=== PATIENT | female | born 1950 | race American Indian/Alaskan Native ===

== ENCOUNTER 2018-05-20 11:45 | Inpatient (IN) | payer MEDICARE ==
--- NOTE | 2018-05-20 12:47 | Emergency Department Report ---
HPI - General Chief Complaint: Altered Mental Status Time Seen by Provider: 05/20/18 12:27 - HPI HPI: Room 23 The patient is a 67-year-old female presenting with a chief complaint of altered mental status. History is obtained by EMS report as patient is altered and family has not yet arrived. Per EMS the patient has had "altered mental status" since yesterday and has not eaten for the past 3 days. The patient seems confused but speaks clearly. The patient was not aware that she was currently in the emergency department. When asked how she is feeling or if anything is bothering her the patient does not answer. However patient is able to provide some of her past medical history acknowledging she has diabetes, asthma, hypertension, previous stroke and "kidney problems." Location: Mental state Duration: [See above] Quality: Altered Severity: Moderate Modifying factors: [see above] Context: [see above] Mode of transportation: [not driving] ED Past Medical Hx - Past Medical History Hx Hypertension: Yes Hx CVA: Yes Hx Diabetes: Yes Hx Renal Disease: Yes Hx Asthma: Yes Additional medical history: Sarcoidosis - Surgical History Past Surgical History?: No Additional Surgical History: R knee - Social History Smoking Status: Current Every Day Smoker (2/3 pack per day) Substance Use Type: None (denies illicit drug use) - Medications Home Medications: Home Medications Medication Instructions Recorded Confirmed Last Taken Type Acetaminophen/Codeine [Tylenol 1 tab PO Q6H PRN #12 tab 04/24/18 Unknown Rx /Codeine # 3 tab] Ibuprofen [Motrin] 600 mg PO Q8H PRN #20 tablet 04/24/18 Unknown Rx ED Review of Systems ROS: Stated complaint: AMS Other details as noted in HPI Comment: Unobtainable due to pts medical conditions Physical Exam - Physical Exam Vital Signs: Vital Signs 05/20/18 12:12 Temperature 99.3 F Pulse Rate 60 Respiratory 16 Rate Blood Pressure 105/41 Physical Exam: GENERAL: The patient is well-developed well-nourished female lying on stretcher not appearing to be in acute distress. [] HEENT: Normocephalic. Atraumatic. Extraocular motions are intact. Patient has moist mucous membranes. NECK: Supple. Trachea midline CHEST/LUNGS: Clear to auscultation. There is no respiratory distress noted. HEART/CARDIOVASCULAR: Regular. There is no tachycardia. There is no gallop rub or murmur. ABDOMEN: Abdomen is soft, nontender. Patient has normal bowel sounds. There is no abdominal distention. SKIN: There is no rash. There is no diaphoresis. NEURO: The patient is awake but appears confused and was not aware of her current location (emergency department). The patient is semi-cooperative. The patient has no focal neurologic deficits. The patient has normal speech. Self Contained Behavior Unit Teacher equal bilaterally. Moves all 4 extremities MUSCULOSKELETAL: There is no evidence of acute injury. ED Course Vital Signs 05/20/18 12:12 Temperature 99.3 F Pulse Rate 60 Respiratory 16 Rate Blood Pressure 105/41 ED Medical Decision Making - Lab Data Result diagrams: 05/20/18 13:10 05/20/18 13:10 - EKG Data -: EKG Interpreted by Me EKG shows normal: sinus rhythm Rate: normal - EKG Data When compared to previous EKG there are: previous EKG unavailable Interpretation: other (no ischemic changes seen) - Radiology Data Radiology results: pending (CT head) - Differential Diagnosis altered mental status, ICH, hypoglycemia, hyperkalemia Critical care attestation.: If time is entered above; I have spent that time in minutes in the direct care of this critically ill patient, excluding procedure time. ED Disposition Clinical Impression: Altered mental status Disposition: DC-09 OP ADMIT IP TO THIS HOSP Is pt being admited?: Yes Does the pt Need Aspirin: No Condition: Fair Referrals: PRIMARY CARE, [Primary Care Provider] - 3-5 Days Time of Disposition: 19:31 (hospitalist notified (Dr Robison))
[2018-05-20 13:20] LABS: Basophils % (Auto) 0.4 % (0.0-1.8); Hematocrit 35.6 % (30.3-42.9); Hemoglobin 11.9 gm/dl (10.1-14.3); Lymphocytes # (Auto) 0.6 K/mm3 (1.2-5.4); Mean Corpuscular HGB Conc 33 % (30-34); Mean Corpuscular Volume 85 fl (79-97); Monocytes # (Auto) 0.6 K/mm3 (0.0-0.8); Monocytes % (Auto) 7.6 % (0.0-7.3); Platelet Count 148 K/mm3 (140-440)
[2018-05-20 13:33] LABS: INR 1.17 (0.87-1.13); Partial Thromboplastin Time 27.5 Sec. (24.2-36.6)
[2018-05-20 13:38] LABS: Creatine Kinase MB 2.9 ng/mL (0.0-4.0)
[2018-05-20 13:39] LABS: Alanine Aminotransferase 18 units/L (7-56); Albumin 3.6 g/dL (3.9-5); BUN/Creatinine Ratio 12; Blood Urea Nitrogen 16 mg/dL (7-17); Calcium 9.1 mg/dL (8.4-10.2); Hemolysis Index 2
[2018-05-20] MEDS ORDERED: ATIVAN IV ONE ×2 (14:18→17:00)
[2018-05-20] MEDS ORDERED: ZOFRAN ONE (15:02)
[2018-05-20] MEDS ORDERED: ZOFRAN IV ONE (15:02)
[2018-05-20] MEDS ORDERED: XYLOCAINE 1% 20 mL ONE (17:35)
[2018-05-20] MEDS ORDERED: HALDOL IM ONE (18:58)
[2018-05-20] MEDS ORDERED: VERSED IV ONE (19:00)
[2018-05-20] MEDS ORDERED: VERSED IV NR (19:00)
--- NOTE | 2018-05-20 20:41 | Cat Scan Report ---
FINAL REPORT EXAM: CT HEAD/BRAIN WO CON HISTORY: altered mental status COMPARISON: None available. TECHNIQUE: Axial images obtained skull base through vertex. FINDINGS: No acute intracranial hemorrhage, midline shift or pathologic extra axial fluid collection. Ventricle s and cisterns are normal in size and configuration for the patient's age. [place]ancino-white differentiation preserved. Calvarium grossly intact. Ocular globes are grossly unremarkable. IMPRESSION: No grossly acute intracranial abnormality.
--- NOTE | 2018-05-20 22:59 | XRay Report ---
FINAL REPORT EXAM: XR CHEST 1V AP HISTORY: ams COMPARISON: None available. FINDINGS: Frontal view(s) of the chest obtained. Mild cardiac enlargement. Shallow inspiration with crowding of bronchovascular markings. No large consolidation or effusion. No pneumothorax. IMPRESSION: Mild cardiac enlargement. Shallow inspiration. No gross focal consolidation.
--- NOTE | 2018-05-20 23:16 | History and Physical Report ---
History of Present Illness Date of examination: 05/20/18 History of present illness: This 67-year-old woman with unknown medical problem, presumably hypertension, diabetes, CVA per the emergency room physician was sent to the emergency room for evaluation of altered mental status. The patient is status post Ativan, julia ble to give a history, review of systems unobtainable. It seems She recently had a right knee surgery, fresh scar present on knee PAST MEDICAL HISTORY: Unknown PAST SURGICAL HISTORY: Unknown SOCIAL HISTORY: Unknown FAMILY HISTORY: Unknown Medications and Allergies Allergies Allergy/AdvReac Type Severity Reaction Status Date / Time ciprofloxacin [From Cipro] Allergy Unknown Verified 04/24/18 21:07 lisinopril Allergy Unknown Verified 04/24/18 21:07 Lodine Allergy Unknown Uncoded 04/24/18 21:07 Home Medications Medication Instructions Recorded Confirmed Last Taken Type Acetaminophen/Codeine [Tylenol 1 tab PO Q6H PRN #12 tab 04/24/18 05/20/18 Unknown Rx /Codeine # 3 tab] Ibuprofen [Motrin] 600 mg PO Q8H PRN #20 tablet 04/24/18 05/20/18 Unknown Rx Active Meds: Active Medications Midazolam HCl (Versed) 5 mg IV ONCE NR Stop: 05/20/18 23:59 Last Admin: 05/20/18 19:02 Dose: 5 mg Documented by: Exam - Physical Exam Narrative exam: General Apperance: The patient lying in bed, breathing comfortable HEENT: Normocephalic, atraumatic. Pupils equally round and reactive to light, EOMI, no sclericterus or JVD or thyromegaly or nodule. , no carotid bruit, mucous membranes moist, no exudate or erythema Heart: S1-S2, regular is rhythm Lungs: Clear to auscultation bilaterally, breathing comfortable Abdomen: Positive bowel sounds, soft, nontender, nondistended, no organomegaly Extremities: No edema cyanosis clubbing Skin: no rash, nodule, warm and dry Neuro: Difficult to assess, moves all extremities - Constitutional Vitals: Temp Pulse Resp BP Pulse Ox 99.3 F 62 20 116/61 96 05/20/18 17:48 05/20/18 20:42 05/20/18 20:42 05/20/18 20:42 05/20/18 19:15 Results - Labs CBC & Chem 7: 05/21/18 04:00 05/20/18 13:10 Labs: Abnormal lab results 05/20/18 05/20/18 05/20/18 Range/Units 13:10 13:10 13:10 RDW 16.0 H (13.2-15.2) % Lymph % (Auto) 8.0 L (13.4-35.0) % [place] % (Auto) 7.6 H (0.0-7.3) % Lymph # 0.6 L (1.2-5.4) K/mm3 Seg Neutrophils % 84.0 H (40.0-70.0) % PT 15.3 H (12.2-14.9) Sec. INR 1.17 H (0.87-1.13) Potassium 3.5 L (3.6-5.0) mmol/L Creatinine 1.3 H (0.7-1.2) mg/dL Glucose 111 H (65-100) mg/dL Alkaline Phosphatase 181 H (35-129) units/L Total Creatine Kinase 524 H (30-135) units/L Albumin 3.6 L (3.9-5) g/dL - Imaging and Cardiology CT Scan - head: report reviewed Assessment and Plan Assessment Acute encephalopathy secondary to UTI Urinary tract infection Possible hypertension Possible diabetes Possible CVA Thrombocytopenia Plan Admit to medicine Start IV fluids IV Rocephin, follow cultures DVT prophylaxis
[2018-05-20 23:22] LABS: Amorphous Crystals,Urine 3+; Bacteria,Urine 3+ /HPF (Negative); Bilirubin,Urine NEG (Negative); Blood,Urine NEG (Negative); Color,Urine Yellow (Yellow); Urobilinogen,Urine < 2.0 mg/dL (<2.0)
[2018-05-20] MEDS ORDERED: TYLENOL PO PRN (23:51)
[2018-05-20] MEDS ORDERED: SODIUM CHLORIDE FLUSH SYRINGE 10 ML IV PRN (23:51)
[2018-05-20] MEDS ORDERED: ZOFRAN IV PRN (23:51)
[2018-05-20 23:54] LABS: RBC,Urine < 1.0 /HPF (0.0-6.0)
[2018-05-21] MEDS ORDERED: ROCEPHIN/NS 1 GM/50 ML 1 GM/50 ML BAG IV SCH ×2 (04:20→10:00)
[2018-05-21] MEDS ORDERED: SODIUM CHLORIDE FLUSH SYRINGE 10 ML IV PRN (04:20)
[2018-05-21] MEDS ORDERED: TYLENOL PO PRN (04:20)
[2018-05-21] MEDS ORDERED: NACL 0.9% 1000 ML 1,000 ML IV SCH (05:00)
[2018-05-21] MEDS: ROCEPHIN/NS 1 GM/50 ML 1 GM/50 ML BAG IV SCH (05:30)
[2018-05-21 06:07] LABS: Basophils % (Auto) 0.5 % (0.0-1.8); Hematocrit 36.6 % (30.3-42.9); Lymphocytes # (Auto) 0.7 K/mm3 (1.2-5.4); Lymphocytes % (Auto) 11.7 % (13.4-35.0); Mean Corpuscular HGB Conc 33 % (30-34); Mean Corpuscular Volume 85 fl (79-97); Monocytes # (Auto) 0.5 K/mm3 (0.0-0.8); Monocytes % (Auto) 9.3 % (0.0-7.3); Platelet Count 152 K/mm3 (140-440); Red Blood Count 4.32 M/mm3 (3.65-5.03); Red Cell Distribution Width 16.2 % (13.2-15.2)
[2018-05-21 06:24] LABS: Calcium 9.2 mg/dL (8.4-10.2)
[2018-05-21] MEDS: SODIUM CHLORIDE FLUSH SYRINGE 10 ML IV SCH ×4 (09:44→21:28)
[2018-05-21] MEDS ORDERED: LOVENOX SUB-Q SCH ×2 (10:00)
[2018-05-21] MEDS ORDERED: K-DUR PO ONE (10:20)
--- NOTE | 2018-05-21 10:30 | Progress Note ---
Assessment and Plan Assessment and plan: --Hypokalemia; replace per protocol and monitor levels --Sepsis secondary to UTI; continue empiric antibiotics follow cultures --Febrile illness; secondary to UTI Empiric antibiotics follow cultures --Encephalopathy; secondary to UTI Significant improvement, supportive care --Diarrhea probably vital, supportive care, stool analysis; --Acute kidney injury; vasomotor nephropathy IV fluids, avoid nephrotoxins --Hypernatremia: Half normal saline IV fluids Closely monitor electrolytes --Ongoing tobacco use; smoking cessation, nicotine patch as needed --Morbid obesity; advised weight reduction, may benefit by outpatient bariatric surgical evaluation. For weight reduction program, When medically stable --DVT prophylaxis; Lovenox Closely monitor the patient and adjust management as needed Possible discharge in 1-2 days if stable History Interval history: Patient seen and examined medical records reviewed Admitted with altered level of consciousness and UTI Patient feels slightly better Has some loose stool Alert awake oriented Vital signs noted Hospitalist Physical - Constitutional Vitals: Temp Pulse Resp BP Pulse Ox 100.4 F H 77 18 120/61 97 05/21/18 04:03 05/21/18 04:03 05/21/18 04:03 05/21/18 04:03 05/21/18 10:00 General appearance: Present: no acute distress, well-nourished, obese (morbidly obese) - EENT Eyes: Present: PERRL, EOM intact - Neck Neck: Present: supple, normal ROM - Respiratory Respiratory effort: normal Respiratory: bilateral: diminished, negative: rales, rhonchi, wheezing - Cardiovascular Rhythm: regular Heart Sounds: Present: S1 & S2 - Extremities Extremities: no ischemia, No edema - Abdominal General gastrointestinal: soft, non-tender, non-distended, normal bowel sounds - Integumentary Integumentary: Present: clear, warm - Psychiatric Psychiatric: appropriate mood/affect, cooperative - Neurologic Neurologic: CNII-XII intact, moves all extremities Results - Labs CBC & Chem 7: 05/21/18 04:00 05/21/18 05:30 Labs: Laboratory Last Values WBC 5.7 K/mm3 (4.5-11.0) 05/21/18 04:00 RBC 4.32 M/mm3 (3.65-5.03) 05/21/18 04:00 Hgb 12.0 gm/dl (10.1-14.3) 05/21/18 04:00 Hct 36.6 % (30.3-42.9) 05/21/18 04:00 MCV 85 fl (79-97) 05/21/18 04:00 MCH 28 pg (28-32) 05/21/18 04:00 MCHC 33 % (30-34) 05/21/18 04:00 RDW 16.2 % (13.2-15.2) H 05/21/18 04:00 Plt Count 152 K/mm3 (140-440) 05/21/18 04:00 Lymph % (Auto) 11.7 % (13.4-35.0) L 05/21/18 04:00 [place] % (Auto) 9.3 % (0.0-7.3) H 05/21/18 04:00 Eos % (Auto) 0.0 % (0.0-4.3) 05/21/18 04:00 Baso % (Auto) 0.5 % (0.0-1.8) 05/21/18 04:00 Lymph # 0.7 K/mm3 (1.2-5.4) L 05/21/18 04:00 [place] # 0.5 K/mm3 (0.0-0.8) 05/21/18 04:00 Eos # 0.0 K/mm3 (0.0-0.4) 05/21/18 04:00 Baso # 0.0 K/mm3 (0.0-0.1) 05/21/18 04:00 Seg Neutrophils % 78.5 % (40.0-70.0) H 05/21/18 04:00 Seg Neutrophils # 4.5 K/mm3 (1.8-7.7) 05/21/18 04:00 PT 15.3 Sec. (12.2-14.9) H 05/20/18 13:10 INR 1.17 (0.87-1.13) H 05/20/18 13:10 APTT 27.5 Sec. (24.2-36.6) 05/20/18 13:10 Sodium 147 mmol/L (137-145) H 05/21/18 05:30 Potassium 3.1 mmol/L (3.6-5.0) L 05/21/18 05:30 Chloride 104.7 mmol/L (98-107) 05/21/18 05:30 Carbon Dioxide 27 mmol/L (22-30) 05/21/18 05:30 Anion Gap 18 mmol/L 05/21/18 05:30 BUN 20 mg/dL (7-17) H 05/21/18 05:30 Creatinine 1.3 mg/dL (0.7-1.2) H 05/21/18 05:30 Estimated GFR 50 ml/min 05/21/18 05:30 BUN/Creatinine Ratio 15 % 05/21/18 05:30 Glucose 106 mg/dL (65-100) H 05/21/18 05:30 POC Glucose 99 (70-105) 05/21/18 07:40 Calcium 9.2 mg/dL (8.4-10.2) 05/21/18 05:30 Total Bilirubin 0.40 mg/dL (0.1-1.2) 05/20/18 13:10 AST 33 units/L (5-40) 05/20/18 13:10 ALT 18 units/L (7-56) 05/20/18 13:10 Alkaline Phosphatase 181 units/L (35-129) H 05/20/18 13:10 Ammonia 25.0 umol/L (25-60) 05/20/18 13:10 Total Creatine Kinase 524 units/L (30-135) H 05/20/18 13:10 CK-MB (CK-2) 2.9 ng/mL (0.0-4.0) 05/20/18 13:10 CK-MB (CK-2) Rel Index 0.5 (0-4) 05/20/18 13:10 Troponin T < 0.010 ng/mL (0.00-0.029) 05/20/18 13:10 NT-Pro-B Natriuret Pep 669.0 pg/mL (0-900) 05/20/18 13:10 Total Protein 7.7 g/dL (6.3-8.2) 05/20/18 13:10 Albumin 3.6 g/dL (3.9-5) L 05/20/18 13:10 Albumin/Globulin Ratio 0.9 % 05/20/18 13:10 Urine Color Yellow (Yellow) 05/20/18 22:50 Urine Turbidity Turbid (Clear) 05/20/18 22:50 Urine pH 5.0 (5.0-7.0) 05/20/18 22:50 Ur Specific [place] 1.030 (1.003-1.030) 05/20/18 22:50 Urine Protein 30 mg/dl mg/dL (Negative) 05/20/18 22:50 Urine Glucose (UA) Neg mg/dL (Negative) 05/20/18 22:50 Urine Ketones Neg mg/dL (Negative) 05/20/18 22:50 Urine Blood Neg (Negative) 05/20/18 22:50 Urine Nitrite Neg (Negative) 05/20/18 22:50 Urine Bilirubin Neg (Negative) 05/20/18 22:50 Urine Urobilinogen < 2.0 mg/dL (<2.0) 05/20/18 22:50 Ur Leukocyte Esterase Neg (Negative) 05/20/18 22:50 Urine WBC (Auto) 142.0 /HPF (0.0-6.0) H 05/20/18 22:50 Urine RBC (Auto) < 1.0 /HPF (0.0-6.0) 05/20/18 22:50 U Epithel Cells (Auto) 3.0 /HPF (0-13.0) 05/20/18 22:50 Urine Bacteria (Auto) 3+ /HPF (Negative) 05/20/18 22:50 Amorphous Crystals 3+ 05/20/18 22:50
[2018-05-21] MEDS: NACL 0.45% 1000 ML 1,000 ML IV SCH ×2 (11:29→21:30)
[2018-05-21] MEDS: ZOFRAN IV PRN (12:39)
[2018-05-21] MEDS: HABITROL TD SCH (13:39)
[2018-05-21] MEDS: PEPCID PO SCH (21:26)
[2018-05-21] MEDS ORDERED: ALUM-MAG HYDROX-SIMETH 200-200-20MG/5ML PO PRN (23:49)
[2018-05-22] MEDS: PERCOCET 5/325 PO PRN ×3 (01:13→21:57)
[2018-05-22 06:59] LABS: BUN/Creatinine Ratio 16; Blood Urea Nitrogen 18 mg/dL (7-17); Calcium 8.4 mg/dL (8.4-10.2); Hemolysis Index 0
[2018-05-22] MEDS: NACL 0.45% 1000 ML 1,000 ML IV SCH (06:59)
[2018-05-22] MEDS ORDERED: K-DUR PO ONE (08:00)
[2018-05-22] MEDS: KCL 10MEQ/100ML 10 MEQ/100 ML BAG IV SCH ×2 (08:58→15:06)
[2018-05-22] MEDS: PEPCID PO SCH ×2 (09:02→21:58)
[2018-05-22] MEDS: SODIUM CHLORIDE FLUSH SYRINGE 10 ML IV SCH ×4 (09:02→21:59)
--- NOTE | 2018-05-22 09:10 | Progress Note ---
Assessment and Plan Assessment and plan: --Hypokalemia; replace per protocol and monitor levels --Sepsis secondary to UTI; continue empiric antibiotics follow cultures --Febrile illness; secondary to UTI Empiric antibiotics follow cultures --Encephalopathy; secondary to UTI Significant improvement, supportive care --Diarrhea probably vital, supportive care, stool analysis; --Acute kidney injury; vasomotor nephropathy IV fluids, avoid nephrotoxins --Hypernatremia: Half normal saline IV fluids Closely monitor electrolytes --Ongoing tobacco use; smoking cessation, nicotine patch as needed --Morbid obesity; BMI 55.7, advised weight reduction, may benefit by outpatient bariatric surgical evaluation. For weight reduction program, When medically stable --DVT prophylaxis; Lovenox Physical therapy, evaluate and treat Closely monitor the patient and adjust management as needed Possible discharge in 1-2 days if stable History Interval history: Patient seen and examined medical records reviewed She complains of back pain, patient is comfortable Alert awake oriented, Vital signs reviewed No new events reported by the nursing staff Hospitalist Physical - Constitutional Vitals: Temp Pulse Resp BP Pulse Ox 98.6 F 66 24 137/67 98 05/22/18 05:01 05/22/18 05:01 05/22/18 05:01 05/22/18 05:01 05/22/18 05:01 General appearance: Present: no acute distress, well-nourished, obese (morbidly obese) - EENT Eyes: Present: PERRL, EOM intact - Neck Neck: Present: supple, normal ROM - Respiratory Respiratory effort: normal Respiratory: bilateral: diminished, negative: rales, rhonchi, wheezing - Cardiovascular Rhythm: regular Heart Sounds: Present: S1 & S2 - Extremities Extremities: no ischemia, No edema Extremity abnormal: other (status post knee surgery) - Abdominal General gastrointestinal: soft, non-tender, non-distended, normal bowel sounds - Integumentary Integumentary: Present: clear, warm - Psychiatric Psychiatric: appropriate mood/affect, cooperative - Neurologic Neurologic: CNII-XII intact, moves all extremities Results - Labs CBC & Chem 7: 05/21/18 04:00 05/22/18 05:50 Labs: Laboratory Last Values WBC 5.7 K/mm3 (4.5-11.0) 05/21/18 04:00 RBC 4.32 M/mm3 (3.65-5.03) 05/21/18 04:00 Hgb 12.0 gm/dl (10.1-14.3) 05/21/18 04:00 Hct 36.6 % (30.3-42.9) 05/21/18 04:00 MCV 85 fl (79-97) 05/21/18 04:00 MCH 28 pg (28-32) 05/21/18 04:00 MCHC 33 % (30-34) 05/21/18 04:00 RDW 16.2 % (13.2-15.2) H 05/21/18 04:00 Plt Count 152 K/mm3 (140-440) 05/21/18 04:00 Lymph % (Auto) 11.7 % (13.4-35.0) L 05/21/18 04:00 [place] % (Auto) 9.3 % (0.0-7.3) H 05/21/18 04:00 Eos % (Auto) 0.0 % (0.0-4.3) 05/21/18 04:00 Baso % (Auto) 0.5 % (0.0-1.8) 05/21/18 04:00 Lymph # 0.7 K/mm3 (1.2-5.4) L 05/21/18 04:00 [place] # 0.5 K/mm3 (0.0-0.8) 05/21/18 04:00 Eos # 0.0 K/mm3 (0.0-0.4) 05/21/18 04:00 Baso # 0.0 K/mm3 (0.0-0.1) 05/21/18 04:00 Seg Neutrophils % 78.5 % (40.0-70.0) H 05/21/18 04:00 Seg Neutrophils # 4.5 K/mm3 (1.8-7.7) 05/21/18 04:00 PT 15.3 Sec. (12.2-14.9) H 05/20/18 13:10 INR 1.17 (0.87-1.13) H 05/20/18 13:10 APTT 27.5 Sec. (24.2-36.6) 05/20/18 13:10 Sodium 139 mmol/L (137-145) D 05/22/18 05:50 Potassium 2.9 mmol/L (3.6-5.0) L* 05/22/18 05:50 Chloride 102.0 mmol/L (98-107) 05/22/18 05:50 Carbon Dioxide 23 mmol/L (22-30) 05/22/18 05:50 Anion Gap 17 mmol/L 05/22/18 05:50 BUN 18 mg/dL (7-17) H 05/22/18 05:50 Creatinine 1.1 mg/dL (0.7-1.2) 05/22/18 05:50 Estimated GFR > 60 ml/min 05/22/18 05:50 BUN/Creatinine Ratio 16 % 05/22/18 05:50 Glucose 99 mg/dL (65-100) 05/22/18 05:50 POC Glucose 88 (70-105) 05/22/18 07:13 Calcium 8.4 mg/dL (8.4-10.2) 05/22/18 05:50 Magnesium 2.30 mg/dL (1.7-2.3) 05/22/18 05:50 Total Bilirubin 0.40 mg/dL (0.1-1.2) 05/20/18 13:10 AST 33 units/L (5-40) 05/20/18 13:10 ALT 18 units/L (7-56) 05/20/18 13:10 Alkaline Phosphatase 181 units/L (35-129) H 05/20/18 13:10 Ammonia 25.0 umol/L (25-60) 05/20/18 13:10 Total Creatine Kinase 524 units/L (30-135) H 05/20/18 13:10 CK-MB (CK-2) 2.9 ng/mL (0.0-4.0) 05/20/18 13:10 CK-MB (CK-2) Rel Index 0.5 (0-4) 05/20/18 13:10 Troponin T < 0.010 ng/mL (0.00-0.029) 05/20/18 13:10 NT-Pro-B Natriuret Pep 669.0 pg/mL (0-900) 05/20/18 13:10 Total Protein 7.7 g/dL (6.3-8.2) 05/20/18 13:10 Albumin 3.6 g/dL (3.9-5) L 05/20/18 13:10 Albumin/Globulin Ratio 0.9 % 05/20/18 13:10 Urine Color Yellow (Yellow) 05/20/18 22:50 Urine Turbidity Turbid (Clear) 05/20/18 22:50 Urine pH 5.0 (5.0-7.0) 05/20/18 22:50 Ur Specific [place] 1.030 (1.003-1.030) 05/20/18 22:50 Urine Protein 30 mg/dl mg/dL (Negative) 05/20/18 22:50 Urine Glucose (UA) Neg mg/dL (Negative) 05/20/18 22:50 Urine Ketones Neg mg/dL (Negative) 05/20/18 22:50 Urine Blood Neg (Negative) 05/20/18 22:50 Urine Nitrite Neg (Negative) 05/20/18 22:50 Urine Bilirubin Neg (Negative) 05/20/18 22:50 Urine Urobilinogen < 2.0 mg/dL (<2.0) 05/20/18 22:50 Ur Leukocyte Esterase Neg (Negative) 05/20/18 22:50 Urine WBC (Auto) 142.0 /HPF (0.0-6.0) H 05/20/18 22:50 Urine RBC (Auto) < 1.0 /HPF (0.0-6.0) 05/20/18 22:50 U Epithel Cells (Auto) 3.0 /HPF (0-13.0) 05/20/18 22:50 Urine Bacteria (Auto) 3+ /HPF (Negative) 05/20/18 22:50 Amorphous Crystals 3+ 05/20/18 22:50
[2018-05-22] MEDS: HABITROL TD SCH (15:05)
[2018-05-22] MEDS: ROCEPHIN/NS 1 GM/50 ML 1 GM/50 ML BAG IV SCH (15:05)
[2018-05-22] MEDS: ZOFRAN IV PRN (17:54)
[2018-05-22] MEDS: LOMOTIL PO PRN (17:54)
[2018-05-23 05:51] LABS: BUN/Creatinine Ratio 17; Blood Urea Nitrogen 15 mg/dL (7-17); Calcium 8.3 mg/dL (8.4-10.2); Hemolysis Index 17
[2018-05-23] MEDS: ZOFRAN IV PRN (08:00)
[2018-05-23] MEDS: PERCOCET 5/325 PO PRN ×3 (08:00→21:07)
[2018-05-23] MEDS: PEPCID PO SCH ×2 (09:09→21:07)
[2018-05-23] MEDS: HABITROL TD SCH (09:11)
--- NOTE | 2018-05-23 11:06 | Progress Note ---
Assessment and Plan Assessment and plan: --Hypokalemia; replace per protocol and monitor levels --Sepsis secondary to UTI; continue empiric antibiotics follow cultures --Febrile illness; secondary to UTI Empiric antibiotics follow cultures --Encephalopathy; secondary to UTI Significant improvement, supportive care --Diarrhea probably vital, supportive care, stool analysis; --Acute kidney injury; vasomotor nephropathy IV fluids, avoid nephrotoxins --Hypernatremia: Half normal saline IV fluids Closely monitor electrolytes --Ongoing tobacco use; smoking cessation, nicotine patch as needed --Morbid obesity; BMI 55.7, advised weight reduction, may benefit by outpatient bariatric surgical evaluation. For weight reduction program, When medically stable --DVT prophylaxis; Lovenox Physical therapy, evaluate and treat Closely monitor the patient and adjust management as needed Possible discharge in 1-2 days if stable History Interval history: Patient seen and examined medical records reviewed Patient feels slightly better no new complaints Vital signs noted Hospitalist Physical - Constitutional Vitals: Temp Pulse Resp BP Pulse Ox 98.5 F 68 28 H 124/66 99 05/22/18 22:37 05/22/18 22:37 05/22/18 22:37 05/22/18 22:37 05/23/18 09:02 General appearance: Present: no acute distress, well-nourished, obese (morbidly obese) - EENT Eyes: Present: PERRL, EOM intact - Neck Neck: Present: supple, normal ROM - Respiratory Respiratory effort: normal Respiratory: bilateral: diminished, negative: rales, rhonchi, wheezing - Cardiovascular Rhythm: regular Heart Sounds: Present: S1 & S2 - Extremities Extremities: no ischemia, No edema - Abdominal General gastrointestinal: soft, non-tender, non-distended, normal bowel sounds - Integumentary Integumentary: Present: clear, warm - Psychiatric Psychiatric: appropriate mood/affect, cooperative (2.) - Neurologic Neurologic: CNII-XII intact, moves all extremities Results - Labs CBC & Chem 7: 05/21/18 04:00 05/23/18 04:50 Labs: Laboratory Last Values WBC 5.7 K/mm3 (4.5-11.0) 05/21/18 04:00 RBC 4.32 M/mm3 (3.65-5.03) 05/21/18 04:00 Hgb 12.0 gm/dl (10.1-14.3) 05/21/18 04:00 Hct 36.6 % (30.3-42.9) 05/21/18 04:00 MCV 85 fl (79-97) 05/21/18 04:00 MCH 28 pg (28-32) 05/21/18 04:00 MCHC 33 % (30-34) 05/21/18 04:00 RDW 16.2 % (13.2-15.2) H 05/21/18 04:00 Plt Count 152 K/mm3 (140-440) 05/21/18 04:00 Lymph % (Auto) 11.7 % (13.4-35.0) L 05/21/18 04:00 [place] % (Auto) 9.3 % (0.0-7.3) H 05/21/18 04:00 Eos % (Auto) 0.0 % (0.0-4.3) 05/21/18 04:00 Baso % (Auto) 0.5 % (0.0-1.8) 05/21/18 04:00 Lymph # 0.7 K/mm3 (1.2-5.4) L 05/21/18 04:00 [place] # 0.5 K/mm3 (0.0-0.8) 05/21/18 04:00 Eos # 0.0 K/mm3 (0.0-0.4) 05/21/18 04:00 Baso # 0.0 K/mm3 (0.0-0.1) 05/21/18 04:00 Seg Neutrophils % 78.5 % (40.0-70.0) H 05/21/18 04:00 Seg Neutrophils # 4.5 K/mm3 (1.8-7.7) 05/21/18 04:00 PT 15.3 Sec. (12.2-14.9) H 05/20/18 13:10 INR 1.17 (0.87-1.13) H 05/20/18 13:10 APTT 27.5 Sec. (24.2-36.6) 05/20/18 13:10 Sodium 135 mmol/L (137-145) L 05/23/18 04:50 Potassium 3.1 mmol/L (3.6-5.0) L 05/23/18 04:50 Chloride 99.1 mmol/L (98-107) 05/23/18 04:50 Carbon Dioxide 22 mmol/L (22-30) 05/23/18 04:50 Anion Gap 17 mmol/L 05/23/18 04:50 BUN 15 mg/dL (7-17) 05/23/18 04:50 Creatinine 0.9 mg/dL (0.7-1.2) 05/23/18 04:50 Estimated GFR > 60 ml/min 05/23/18 04:50 BUN/Creatinine Ratio 17 % 05/23/18 04:50 Glucose 85 mg/dL (65-100) 05/23/18 04:50 POC Glucose 96 (70-105) 05/23/18 08:16 Calcium 8.3 mg/dL (8.4-10.2) L 05/23/18 04:50 Magnesium 2.30 mg/dL (1.7-2.3) 05/22/18 05:50 Total Bilirubin 0.40 mg/dL (0.1-1.2) 05/20/18 13:10 AST 33 units/L (5-40) 05/20/18 13:10 ALT 18 units/L (7-56) 05/20/18 13:10 Alkaline Phosphatase 181 units/L (35-129) H 05/20/18 13:10 Ammonia 25.0 umol/L (25-60) 05/20/18 13:10 Total Creatine Kinase 524 units/L (30-135) H 05/20/18 13:10 CK-MB (CK-2) 2.9 ng/mL (0.0-4.0) 05/20/18 13:10 CK-MB (CK-2) Rel Index 0.5 (0-4) 05/20/18 13:10 Troponin T < 0.010 ng/mL (0.00-0.029) 05/20/18 13:10 NT-Pro-B Natriuret Pep 669.0 pg/mL (0-900) 05/20/18 13:10 Total Protein 7.7 g/dL (6.3-8.2) 05/20/18 13:10 Albumin 3.6 g/dL (3.9-5) L 05/20/18 13:10 Albumin/Globulin Ratio 0.9 % 05/20/18 13:10 Urine Color Yellow (Yellow) 05/20/18 22:50 Urine Turbidity Turbid (Clear) 05/20/18 22:50 Urine pH 5.0 (5.0-7.0) 05/20/18 22:50 Ur Specific [place] 1.030 (1.003-1.030) 05/20/18 22:50 Urine Protein 30 mg/dl mg/dL (Negative) 05/20/18 22:50 Urine Glucose (UA) Neg mg/dL (Negative) 05/20/18 22:50 Urine Ketones Neg mg/dL (Negative) 05/20/18 22:50 Urine Blood Neg (Negative) 05/20/18 22:50 Urine Nitrite Neg (Negative) 05/20/18 22:50 Urine Bilirubin Neg (Negative) 05/20/18 22:50 Urine Urobilinogen < 2.0 mg/dL (<2.0) 05/20/18 22:50 Ur Leukocyte Esterase Neg (Negative) 05/20/18 22:50 Urine WBC (Auto) 142.0 /HPF (0.0-6.0) H 05/20/18 22:50 Urine RBC (Auto) < 1.0 /HPF (0.0-6.0) 05/20/18 22:50 U Epithel Cells (Auto) 3.0 /HPF (0-13.0) 05/20/18 22:50 Urine Bacteria (Auto) 3+ /HPF (Negative) 05/20/18 22:50 Amorphous Crystals 3+ 05/20/18 22:50 C. difficile Tox (PCR) Negative (Negative) 05/21/18 Unknown
[2018-05-23] MEDS ORDERED: K-DUR PO ONE (12:00)
[2018-05-23] MEDS: ROCEPHIN/NS 1 GM/50 ML 1 GM/50 ML BAG IV SCH (12:38)
[2018-05-23] MEDS: SODIUM CHLORIDE FLUSH SYRINGE 10 ML IV SCH ×4 (12:48→21:16)
[2018-05-24] MEDS: PERCOCET 5/325 PO PRN (03:02)
[2018-05-24 05:31] LABS: Hematocrit 34.3 % (30.3-42.9); Hemoglobin 11.4 gm/dl (10.1-14.3); Mean Corpuscular HGB Conc 33 % (30-34); Mean Corpuscular Volume 84 fl (79-97); Platelet Count 144 K/mm3 (140-440); Red Blood Count 4.08 M/mm3 (3.65-5.03); Red Cell Distribution Width 15.9 % (13.2-15.2)
[2018-05-24 05:54] LABS: BUN/Creatinine Ratio 14; Blood Urea Nitrogen 13 mg/dL (7-17); Calcium 8.7 mg/dL (8.4-10.2); Hemolysis Index 5
[2018-05-24 06:20] LABS: Anisocytosis 1+; Band Neutrophils # (Manual) 0.3 K/mm3; Basophils % (Manual) 0 % (0.0-1.8); Giant Platelets Few; Myelocytes # (Manual) 0.1 K/mm3; Ovalocytes 1+; Promyelocytes # (Manual) 0.1 K/mm3; Tear Drop Cells Rare; Total Cells Counted 100
[2018-05-24] MEDS ORDERED: K-DUR PO ONE (09:00)
[2018-05-24] MEDS: ROCEPHIN/NS 1 GM/50 ML 1 GM/50 ML BAG IV SCH (10:49)
[2018-05-24] MEDS: HABITROL TD SCH (10:50)
[2018-05-24] MEDS: PEPCID PO SCH (10:50)
[2018-05-24] MEDS: SODIUM CHLORIDE FLUSH SYRINGE 10 ML IV SCH ×2 (10:51)
--- NOTE | 2018-05-24 11:20 | Discharge Summary ---
Providers - Providers Date of Admission: 05/20/18 23:15 Date of discharge: 05/24/18 Attending physician: JULIAN HERNANDEZ 05/22/18 12:35 Physical Therapy Evaluation and Treat [CONS] Routine Comment: recent R TKR Reason For Exam: difficulty in ambulation Primary care physician: [facility] [employer] Hospitalization Reason for admission: altered level of consciousness/urinary tract infection Condition: Fair Pertinent studies: CT head without contrast; no acute abnormality Chest x-ray; mild cardiomegaly, no acute abnormality Hospital course: Visit pleasant morbidly obese 67-year-old female patient with significant past medical history of hypertension and diabetes mellitus who was admitted through emergency room with altered level of consciousness patient was initially evaluated symptomatically managed noted to have urinary tract infection. Patient also has history of recent right knee surgery on physical therapy and occupational therapy. The patient's altered level of consciousness gradually improved back to baseline Empiric antibiotics started, and a urinalysis which is negative to date and today she is comfortable in bed no new complaints Vital signs reviewed, Physical examination no new changes Patient is hemodynamically and clinically stable for discharge with home health Discharge diagnosis; --Hypokalemia; corrected --Sepsis secondary to UTI; DC on oral antibiotics --Febrile illness; secondary to UTI --Encephalopathy; secondary to UTI; resolved --Diarrhea probably viral in improved --Acute kidney injury; vasomotor nephropathy; resolved --Hypernatremia: Half normal saline IV fluids; resolved --Ongoing tobacco use; smoking cessation, nicotine patch as needed --Morbid obesity; BMI 55.7, advised weight reduction, Disposition: DC/[place]-06 HOME UNDER HOME [facility] Time spent for discharge: 32 min Core Measure Documentation - Palliative Care Palliative Care/ Comfort Measures: Not Applicable - Core Measures Any of the following diagnoses?: none Exam - Constitutional Vitals: Temp Pulse Resp BP Pulse Ox 98.3 F 56 L 18 129/57 96 05/24/18 05:57 05/24/18 05:57 05/24/18 05:57 05/24/18 05:57 05/24/18 05:57 General appearance: Present: no acute distress, well-nourished, obese (morbid) - EENT Eyes: Present: PERRL, EOM intact - Neck Neck: Present: supple, normal ROM - Respiratory Respiratory effort: normal Respiratory: bilateral: diminished, negative: rales, rhonchi, wheezing - Cardiovascular Rhythm: regular Heart Sounds: Present: S1 & S2 - Extremities Extremities: no ischemia, No edema - Abdominal General gastrointestinal: Present: soft, non-tender, non-distended, normal bowel sounds - Integumentary Integumentary: Present: clear, warm - Musculoskeletal Musculoskeletal: strength equal bilaterally, generalized weakness - Psychiatric Psychiatric: appropriate mood/affect, cooperative - Neurologic Neurologic: CNII-XII intact, moves all extremities Plan Activity: advance as tolerated, fall precautions Diet: other (cardiac diet) Special Instructions: physical therapy Additional Instructions: Physical therapy per schedule. f/u private orthopedic surgeon as scheduled Follow up with: PRIMARY CARE, [Primary Care Provider] - 3-5 Days Prescriptions: Famotidine [Pepcid] 20 mg PO BID #60 tablet Nicotine [Habitrol] 7 mg TD QDAY #30 patch Sulfamethoxazole/Trimethoprim [Bactrim DS TAB] 1 each PO BID #14 tablet
[2018-05-24 12:22] VITALS: BP 116/54
[2018-05-24] MEDS: LOMOTIL PO PRN (12:33)
== END 2018-05-24 15:10 | disposition home health service (06) | DRG 871 ==
LOC: ED 11:45 → 3A 23:15
PROVIDERS: ADMIT Internal Medicine; ATTEND Internal Medicine
DX: A41.9 Sepsis, unspecified organism (principal); N17.0 Acute kidney failure with tubular necrosis; G93.40 Encephalopathy, unspecified; N39.0 Urinary tract infection, site not specified; E87.0 Hyperosmolality and hypernatremia; Z68.43 Body mass index [BMI] 50.0-59.9, adult; E66.01 Morbid (severe) obesity due to excess calories; E11.9 Type 2 diabetes mellitus without complications; E87.6 Hypokalemia; J45.909 Unspecified asthma, uncomplicated; I10 Essential (primary) hypertension; D69.6 Thrombocytopenia, unspecified; F17.210 Nicotine dependence, cigarettes, uncomplicated; Z88.1 Allergy status to other antibiotic agents; Z71.6 Tobacco abuse counseling; Z71.3 Dietary counseling and surveillance; Z88.8 Allergy status to other drugs, medicaments and biological substances; Z86.73 Personal history of transient ischemic attack (TIA), and cerebral infarction without residual deficits
CPT/HCPCS: 36415; 70450; 71045; 80048; 80053; 81001; 82140; 82550; 82553; 82962; 83735; 83880; 84484; 85007; 85025; 85610; 85730; 87040; 87045; 87086; 87493; 93005; 93010; 94760; 99406; G0378; J0696; J1630; J2060; J2250; J2405; J3480; J7030

== ENCOUNTER 2018-06-01 12:05 | Emergency (ER) | payer MEDICARE ==
--- NOTE | 2018-06-01 13:47 | Emergency Department Report ---
ED Lower Extremity HPI - General Chief Complaint: Extremity Injury, Lower Stated Complaint: XRAY ORDERED Time Seen by Provider: 06/01/18 13:35 Source: patient, RN notes reviewed Mode of arrival: Ambulatory Limitations: No Limitations - History of Present Illness Initial Comments: Patient is a 67-year-old female that presents emergency room for rule out of left lower extremity DVT. Patient was sent here by her orthopedist. Patient had a right total knee replacement on 04/18/2018. Patient complained to her orthopedic was right lower extremity swelling and pain. Patient states the pain is a 6 out of 10. Patient states the pain is better with rest and worse with palpation and movement. Patient states she is having complications from her knee replacement. Patient states around the surgery she was on Lovenox for a blood thinner. Patient denies chest pain. Patient denies shortness of breath. She denies abdominal pain. -: Sudden Injury: Leg: Right Place: home Severity: moderate, severe Severity scale (0 -10): 6 Improves With: rest Worsens With: weight bearing, movement, palpation Context: other (no injury. Patient denies trauma.) Associated Symptoms: swelling, able to partially bear weight, ambulatory. denies: snap/pop sensation, numbness, tingling - Related Data Home Medications Medication Instructions Recorded Confirmed Last Taken Dexlansoprazole (Nf) [Dexilant 60 mg PO DAILY 05/22/18 06/01/[address] (Nf)] Citalopram [celeXA] 20 mg PO QDAY 06/01/18 06/01/18 Unknown Clopidogrel [Plavix] 75 mg PO QDAY 06/01/18 06/01/18 Unknown Fluticasone/Vilanterol [Breo 1 each IH DAILY 06/01/18 06/01/18 Unknown Ellipta 100-25 Mcg INH] Folic Acid [Folvite] 1 mg PO QDAY 06/01/18 06/01/18 Unknown Furosemide [Lasix] 80 mg PO DAILY 06/01/18 06/01/18 Unknown Ipratropium (Nf) [Atrovent] 2 puff IH Q6HR 06/01/18 06/01/18 Unknown Levothyroxine [Synthroid] 75 mcg PO QAM 06/01/18 06/01/18 Unknown Linaclotide (Nf) [Linzess (Nf)] 290 mcg PO QDAY 06/01/18 06/01/18 Unknown Losartan [Cozaar] 100 mg PO QDAY 06/01/18 06/01/18 Unknown Metoprolol Tartrate 25 mg PO DAILY 06/01/18 06/01/18 Unknown Potassium Chloride [Klor-Con] 20 meq PO BID 06/01/18 06/01/18 Unknown Pregabalin [Lyrica] 150 mg PO BID 06/01/18 06/01/18 Unknown glipiZIDE [glipiZIDE ER] 5 mg PO QAM 06/01/18 06/01/18 Unknown hydrOXYzine HCl [Hydroxyzine HCl] 25 mg PO BID 06/01/18 06/01/18 Unknown Allergies Allergy/AdvReac Type Severity Reaction Status Date / Time ciprofloxacin [From Cipro] Allergy Unknown Verified 04/24/18 21:07 lisinopril Allergy Unknown Verified 04/24/18 21:07 Lodine Allergy Unknown Uncoded 04/24/18 21:07 ED Review of Systems ROS: Stated complaint: XRAY ORDERED Other details as noted in HPI Constitutional: denies: chills, fever Eyes: denies: eye pain, eye discharge, vision change ENT: denies: ear pain, throat pain Respiratory: denies: cough, shortness of breath, wheezing Cardiovascular: denies: chest pain, palpitations Endocrine: no symptoms reported Gastrointestinal: denies: abdominal pain, nausea, diarrhea Genitourinary: denies: urgency, dysuria, discharge Musculoskeletal: denies: back pain, joint swelling, arthralgia Skin: denies: rash, lesions Neurological: denies: headache, weakness, paresthesias Psychiatric: denies: anxiety, depression Hematological/Lymphatic: denies: easy bleeding, easy bruising ED Past Medical Hx - Past Medical History Previous Medical History?: Yes Hx Hypertension: Yes Hx CVA: Yes Hx Diabetes: Yes Hx Renal Disease: Yes Hx Asthma: Yes Additional medical history: Sarcoidosis - Surgical History Past Surgical History?: Yes Additional Surgical History: R knee - Family History Family history: no significant - Social History Smoking Status: Never Smoker Substance Use Type: None - Medications Home Medications: Home Medications Medication Instructions Recorded Confirmed Last Taken Type Dexlansoprazole (Nf) [Dexilant 60 mg PO DAILY 05/22/18 06/01/18 Unknown History (Nf)] Citalopram [celeXA] 20 mg PO QDAY 06/01/18 06/01/18 Unknown History Clopidogrel [Plavix] 75 mg PO QDAY 06/01/18 06/01/18 Unknown History Fluticasone/Vilanterol [Breo 1 each IH DAILY 06/01/18 06/01/18 Unknown History Ellipta 100-25 Mcg INH] Folic Acid [Folvite] 1 mg PO QDAY 06/01/18 06/01/18 Unknown History Furosemide [Lasix] 80 mg PO DAILY 06/01/18 06/01/18 Unknown History Ipratropium (Nf) [Atrovent] 2 puff IH Q6HR 06/01/18 06/01/18 Unknown History Levothyroxine [Synthroid] 75 mcg PO QAM 06/01/18 06/01/18 Unknown History Linaclotide (Nf) [Linzess (Nf)] 290 mcg PO QDAY 06/01/18 06/01/18 Unknown History Losartan [Cozaar] 100 mg PO QDAY 06/01/18 06/01/18 Unknown History Metoprolol Tartrate 25 mg PO DAILY 06/01/18 06/01/18 Unknown History Potassium Chloride [Klor-Con] 20 meq PO BID 06/01/18 06/01/18 Unknown History Pregabalin [Lyrica] 150 mg PO BID 06/01/18 06/01/18 Unknown History glipiZIDE [glipiZIDE ER] 5 mg PO QAM 06/01/18 06/01/18 Unknown History hydrOXYzine HCl [Hydroxyzine HCl] 25 mg PO BID 06/01/18 06/01/18 Unknown History ED Physical Exam - General Limitations: No Limitations General appearance: alert, in no apparent distress - Head Head exam: Present: atraumatic, normocephalic - Eye Eye exam: Present: normal appearance - ENT ENT exam: Present: mucous membranes moist - Neck Neck exam: Present: normal inspection - Respiratory Respiratory exam: Present: normal lung sounds bilaterally. Absent: respiratory distress - Cardiovascular Cardiovascular Exam: Present: regular rate, normal rhythm. Absent: systolic murmur, diastolic murmur, rubs, gallop - GI/Abdominal GI/Abdominal exam: Present: soft, normal bowel sounds - Extremities Exam Extremities exam: Present: tenderness (right lower extremity swelling. Right lower extremity tenderness to palpation. Positive calf tenderness on the right. Right knee replacement scar appears to be healing well), pedal edema, joint swelling, calf tenderness - Back Exam Back exam: Present: normal inspection - Neurological Exam Neurological exam: Present: alert, oriented X3 - Psychiatric Psychiatric exam: Present: normal affect, normal mood - Skin Skin exam: Present: warm, dry, intact, normal color. Absent: rash ED Course Vital Signs 06/01/18 06/01/18 12:27 14:30 Temperature 98.7 F 98.0 F Pulse Rate 80 Respiratory 18 19 Rate Blood Pressure 140/84 Blood Pressure 143/85 [Left] O2 Sat by Pulse 97 98 Oximetry ED Lower Extremity MDM - Radiology Data Radiology results: report reviewed FINAL REPORT EXAM: VL VENOUS DUPLEX LE RT HISTORY: leg pain and swelling COMPARISON: None. TECHNIQUE: Duplex Doppler ultrasound of the veins of the right lower extremity was performed. FINDINGS: The veins of the right lower extremity are patent, compressible, and demonstra te normal waveforms and augmentation. IMPRESSION: No evidence of deep venous thrombosis of the right lower extremity. - Medical Decision Making Patient is a 67-year-old female is sent here by her orthopedist for DVT evaluation. Patient's DVT ultrasound was negative. Patient discharged home. Patient stable at discharge. Patient given discharge instructions. - Differential Diagnosis leg pain. Leg swelling. DVT. Critical care attestation.: If time is entered above; I have spent that time in minutes in the direct care of this critically ill patient, excluding procedure time. ED Disposition Clinical Impression: Leg swelling Leg pain Qualifiers: Laterality: right Qualified Code(s): M79.604 - Pain in right leg Disposition: DC-01 TO HOME OR SELFCARE Is pt being admited?: No Does the pt Need Aspirin: No Condition: Stable Instructions: Leg Edema (ED), Leg Sprain (ED) Additional Instructions: Patient to follow up with orthopedist in 2-3 days. Patient to call her orthopedist in the morning. Patient to see her primary care in 2-3 days. Patient to return to ER if condition worsens. Patient to continue all her medications. Patient to rest. To elevate. Patient to take Tylenol when necessary for pain. Referrals: LANCE PALMER MD [Primary Care Provider] - 2-3 Days Time of Disposition: 16:28
--- NOTE | 2018-06-01 15:50 | Vascular Lab Report ---
FINAL REPORT EXAM: VL VENOUS DUPLEX LE RT HISTORY: leg pain and swelling COMPARISON: None. TECHNIQUE: Duplex Doppler ultrasound of the veins of the right lower extremity was performed. FINDINGS: The veins of the right lower extremity are patent, compressible, and demonstrate normal waveforms and augmentation. IMPRESSION: No evidence of deep venous thrombosis of the right lower extremity.
[2018-06-01 16:57] VITALS: BP 136/71
== END 2018-06-01 16:45 | disposition home or self-care (01) ==
LOC: ED 12:05
DX: M79.604 Pain in right leg (principal); R22.41 Localized swelling, mass and lump, right lower limb

== ENCOUNTER 2018-06-27 10:01 | Inpatient (IN) | payer MEDICARE ==
[2018-06-27] MEDS ORDERED: NACL 0.9% 1000 ML IV ONE (11:17)
--- NOTE | 2018-06-27 11:38 | XRay Report ---
AP CHEST: HISTORY: Fever There is poor inspiration. AP view of the chest demonstrates a normal mediastinal and cardiac contour with clear lungs and normal bony and soft tissue structures. IMPRESSION: Unremarkable AP chest. No significant change since 05/20/18.
--- NOTE | 2018-06-27 11:46 | Emergency Department Report ---
ED Altered Mental Status HPI - General Chief Complaint: Altered Mental Status Stated Complaint: ALTERED MENTAL STATUS Time Seen by Provider: 06/27/18 11:15 Source: EMS Mode of arrival: Ambulatory Limitations: Physical Limitation - History of Present Illness Initial Comments: Mrs. Long is a 67-year-old female with history of sarcoidosis, asthma, CVA, diabetes, hypertension, depression, CKD, severe obesity who presents with also mental status. Also has fever. Patient is currently nonverbal. History obtained from EMS and the electronic medical record. Found also by her daughter. Normal mental status last night. In May had similar presentation. Diagnosed with acute encephalopathy sepsis due to UTI. MD Complaint: altered mental status -: This morning Consistency of Symptoms: constant Context: history of similar presen, recent fever Associated Symptoms: other (unable to obtain) - Related Data Home Medications Medication Instructions Recorded Confirmed Last Taken Dexlansoprazole (Nf) [Dexilant 60 mg PO DAILY 05/22/18 06/01/18 Unknown (Nf)] Citalopram [celeXA] 20 mg PO QDAY 06/01/18 06/01/18 Unknown Clopidogrel [Plavix] 75 mg PO QDAY 06/01/18 06/01/18 Unknown Fluticasone/Vilanterol [Breo 1 each IH DAILY 06/01/18 06/01/18 Unknown Ellipta 100-25 Mcg INH] Folic Acid [Folvite] 1 mg PO QDAY 06/01/18 06/01/18 Unknown Furosemide [Lasix] 80 mg PO DAILY 06/01/18 06/01/18 Unknown Ipratropium (Nf) [Atrovent] 2 puff IH Q6HR 06/01/18 06/01/18 Unknown Levothyroxine [Synthroid] 75 mcg PO QAM 06/01/18 06/01/18 Unknown Linaclotide (Nf) [Linzess (Nf)] 290 mcg PO QDAY 06/01/18 06/01/18 Unknown Losartan [Cozaar] 100 mg PO QDAY 06/01/18 06/01/18 Unknown Metoprolol Tartrate 25 mg PO DAILY 06/01/18 06/01/18 Unknown Potassium Chloride [Klor-Con] 20 meq PO BID 06/01/18 06/01/18 Unknown Pregabalin [Lyrica] 150 mg PO BID 06/01/18 06/01/18 Unknown glipiZIDE [glipiZIDE ER] 5 mg PO QAM 06/01/18 06/01/18 Unknown hydrOXYzine HCl [Hydroxyzine HCl] 25 mg PO BID 06/01/18 06/01/18 Unknown Allergies Allergy/AdvReac Type Severity Reaction Status Date / Time ciprofloxacin [From Cipro] Allergy Unknown Verified 04/24/18 21:07 lisinopril Allergy Unknown Verified 04/24/18 21:07 Lodine Allergy Unknown Uncoded 04/24/18 21:07 ED Review of Systems ROS: Stated complaint: ALTERED MENTAL STATUS Other details as noted in HPI Comment: Unobtainable due to pts medical conditions (patient is altered.) ED Past Medical Hx - Past Medical History Previous Medical History?: Yes Hx Hypertension: Yes Hx CVA: Yes Hx Heart Attack/AMI: No Hx Congestive Heart Failure: No Hx Diabetes: Yes Hx Deep Vein Thrombosis: No Hx Pulmonary Embolism: No Hx GERD: No Hx Liver Disease: No Hx Renal Disease: Yes Hx of Cancer: No Hx Sickle Cell Disease: No Hx Arthritis: No Hx Headaches / Migraines: No Hx Seizures: No Hx Kidney Stones: No Hx Psychiatric Treatment: Yes (depression) Hx Asthma: Yes Hx COPD: No Hx Tuberculosis: No Hx Dementia: No Hx HIV: No Additional medical history: Sarcoidosis - Surgical History Past Surgical History?: Yes Hx Coronary Stent: No Hx Open Heart Surgery: No Hx Pacemaker: No Hx Internal Defibrillator: No Hx Cholecystectomy: No Hx Appendectomy: No Hx Breast Surgery: No Additional Surgical History: R knee - Social History Smoking Status: Never Smoker Substance Use Type: None - Medications Home Medications: Home Medications Medication Instructions Recorded Confirmed Last Taken Type Dexlansoprazole (Nf) [Dexilant 60 mg PO DAILY 05/22/18 06/01/18 Unknown History (Nf)] Citalopram [celeXA] 20 mg PO QDAY 06/01/18 06/01/18 Unknown History Clopidogrel [Plavix] 75 mg PO QDAY 06/01/18 06/01/18 Unknown History Fluticasone/Vilanterol [Breo 1 each IH DAILY 06/01/18 06/01/18 Unknown History Ellipta 100-25 Mcg INH] Folic Acid [Folvite] 1 mg PO QDAY 06/01/18 06/01/18 Unknown History Furosemide [Lasix] 80 mg PO DAILY 06/01/18 06/01/18 Unknown History Ipratropium (Nf) [Atrovent] 2 puff IH Q6HR 06/01/18 06/01/18 Unknown History Levothyroxine [Synthroid] 75 mcg PO QAM 06/01/18 06/01/18 Unknown History Linaclotide (Nf) [Linzess (Nf)] 290 mcg PO QDAY 06/01/18 06/01/18 Unknown History Losartan [Cozaar] 100 mg PO QDAY 06/01/18 06/01/18 Unknown History Metoprolol Tartrate 25 mg PO DAILY 06/01/18 06/01/18 Unknown History Potassium Chloride [Klor-Con] 20 meq PO BID 06/01/18 06/01/18 Unknown History Pregabalin [Lyrica] 150 mg PO BID 06/01/18 06/01/18 Unknown History glipiZIDE [glipiZIDE ER] 5 mg PO QAM 06/01/18 06/01/18 Unknown History hydrOXYzine HCl [Hydroxyzine HCl] 25 mg PO BID 06/01/18 06/01/18 Unknown History ED Physical Exam - General Limitations: Physical Limitation General appearance: alert, lethargic, other (arousable to minor stimulation, will make eye contact but will not speak) - Head Head exam: Present: atraumatic, normocephalic - Eye Eye exam: Present: normal appearance - ENT ENT exam: Present: mucous membranes dry - Neck Neck exam: Present: normal inspection - Respiratory Respiratory exam: Present: normal lung sounds bilaterally. Absent: respiratory distress, wheezes, rales, rhonchi - Cardiovascular Cardiovascular Exam: Present: regular rate, normal rhythm, normal heart sounds. Absent: systolic murmur, diastolic murmur, rubs, gallop - GI/Abdominal GI/Abdominal exam: Present: soft, normal bowel sounds. Absent: distended, tenderness, guarding, rebound - Expanded Lower Extremity Exam Right Knee exam: Present: full ROM (fresh healing surgical scar). Absent: tenderness, swelling, abrasion - Neurological Exam Neurological exam: Present: altered - Psychiatric Psychiatric exam: Present: flat affect - Skin Skin exam: Present: warm, dry, intact, normal color. Absent: rash ED Course Vital Signs 06/27/18 11:00 Temperature 101.1 F H Pulse Rate 104 H Respiratory 17 Rate Blood Pressure 116/70 Blood Pressure 116/70 [Right] O2 Sat by Pulse 100 Oximetry - Lumbar Puncture Consent Obtained: written consent Time Out Performed: Yes Indication for Procedure: fever work up, change in mental status Patient Position: left lateral decubitus Skin Prep: Povidone-Iodine 1% Local Anesthetic Used: Lidocaine 1% Amount of anesthesia used (mls): 5 Spinal Needle Gauge: 20G Spinal Needle Length: 3.5in Interspace Used: L3-L4 Complications: none, unable to tolerate Additional Comments: due to obese habitus, unable to palpate vertabrae or iliac crest, after hubbing needle was able to contact bone. Unable to reach dura. Procedure aborted. - Lab Data Result diagrams: 06/27/18 11:44 06/27/18 11:44 Lab Results 06/27/18 06/27/18 06/27/18 Range/Units 11:00 11:39 11:39 WBC (4.5-11.0) K/mm3 RBC (3.65-5.03) M/mm3 Hgb (10.1-14.3) gm/dl Hct (30.3-42.9) % MCV (79-97) fl MCH (28-32) pg MCHC (30-34) % RDW (13.2-15.2) % Plt Count (140-440) K/mm3 Add Manual Diff Total Counted Seg Neuts % (Manual) (40.0-70.0) % Band Neutrophils % % Lymphocytes % (Manual) (13.4-35.0) % Reactive Lymphs % (Man) % Monocytes % (Manual) (0.0-7.3) % Eosinophils % (Manual) (0.0-4.3) % Basophils % (Manual) (0.0-1.8) % Metamyelocytes % % Myelocytes % % Promyelocytes % % Blast Cells % % Nucleated RBC % Seg Neutrophils # Man (1.8-7.7) K/mm3 Band Neutrophils # K/mm3 Lymphocytes # (Manual) (1.2-5.4) K/mm3 Abs React Lymphs (Man) K/mm3 Monocytes # (Manual) (0.0-0.8) K/mm3 Eosinophils # (Manual) (0.0-0.4) K/mm3 Basophils # (Manual) (0.0-0.1) K/mm3 Metamyelocytes # K/mm3 Myelocytes # K/mm3 Promyelocytes # K/mm3 Blast Cells # K/mm3 WBC Morphology Hypersegmented Neuts Hyposegmented Neuts Hypogranular Neuts Smudge Cells Toxic Granulation Toxic Vacuolation Dohle Bodies Pelger-Huet Anomaly Herminia Rods Platelet Estimate Clumped Platelets Plt Clumps, EDTA Large Platelets Giant Platelets Platelet Satelliting Plt Morphology Comment RBC Morphology Dimorphic RBCs Polychromasia Hypochromasia Poikilocytosis Anisocytosis Microcytosis Macrocytosis Spherocytes Pappenheimer Bodies Sickle Cells Target Cells Tear Drop Cells Ovalocytes Helmet Cells [place] Bodies [place]gora Rings [place] Cells Bite Cells Crenated Cell Elliptocytes Acanthocytes (Spur) Rouleaux Hemoglobin C Crystals Schistocytes Malaria parasites David Bodies Hem Pathologist Commnt Sodium (137-145) mmol/L Potassium (3.6-5.0) mmol/L Chloride (98-107) mmol/L Carbon Dioxide (22-30) mmol/L Anion Gap mmol/L BUN (7-17) mg/dL Creatinine (0.7-1.2) mg/dL Estimated GFR ml/min BUN/Creatinine Ratio % Glucose (65-100) mg/dL POC Glucose 126 H (70-105) Calcium (8.4-10.2) mg/dL Total Bilirubin (0.1-1.2) mg/dL AST (5-40) units/L ALT (7-56) units/L Alkaline Phosphatase (35-129) units/L Total Protein (6.3-8.2) g/dL Albumin (3.9-5) g/dL Albumin/Globulin Ratio % TSH (0.270-4.200) mlU/mL Urine Color Yellow (Yellow) Urine Turbidity Clear (Clear) Urine pH 5.0 (5.0-7.0) Ur Specific [place] 1.021 (1.003-1.030) Urine Protein <15 mg/dl (Negative) mg/dL Urine Glucose (UA) Neg (Negative) mg/dL Urine Ketones Neg (Negative) mg/dL Urine Blood Neg (Negative) Urine Nitrite Neg (Negative) Urine Bilirubin Neg (Negative) Urine Urobilinogen 2.0 (<2.0) mg/dL Ur Leukocyte Esterase Neg (Negative) Urine WBC (Auto) < 1.0 (0.0-6.0) /HPF Urine RBC (Auto) 3.0 (0.0-6.0) /HPF U Epithel Cells (Auto) < 1.0 (0-13.0) /HPF Urine Mucus Few /HPF Urine Opiates Screen Presumptive negative Urine Methadone Screen Presumptive negative Ur Barbiturates Screen Presumptive negative Ur Phencyclidine Scrn Presumptive negative Ur Amphetamines Screen Presumptive negative U Benzodiazepines Scrn Presumptive negative Urine Cocaine Screen Presumptive negative U Marijuana (THC) Screen Presumptive negative Drugs of Abuse Note Disclamer Plasma/Serum Alcohol (0-0.07) % 06/27/18 06/27/18 06/27/18 Range/Units 11:44 11:44 11:44 WBC 15.1 H (4.5-11.0) K/mm3 RBC 4.53 (3.65-5.03) M/mm3 Hgb 12.3 (10.1-14.3) gm/dl Hct 37.8 (30.3-42.9) % MCV 84 (79-97) fl MCH 27 L (28-32) pg MCHC 33 (30-34) % RDW 17.1 H (13.2-15.2) % Plt Count 174 (140-440) K/mm3 Add Manual Diff Complete Total Counted 100 Seg Neuts % (Manual) 95.0 H (40.0-70.0) % Band Neutrophils % 0 % Lymphocytes % (Manual) 3.0 L (13.4-35.0) % Reactive Lymphs % (Man) 0 % Monocytes % (Manual) 1.0 (0.0-7.3) % Eosinophils % (Manual) 1.0 (0.0-4.3) % Basophils % (Manual) 0 (0.0-1.8) % Metamyelocytes % 0 % Myelocytes % 0 % Promyelocytes % 0 % Blast Cells % 0 % Nucleated RBC % Not Reportable Seg Neutrophils # Man 14.3 H (1.8-7.7) K/mm3 Band Neutrophils # 0.0 K/mm3 Lymphocytes # (Manual) 0.5 L (1.2-5.4) K/mm3 Abs React Lymphs (Man) 0.0 K/mm3 Monocytes # (Manual) 0.2 (0.0-0.8) K/mm3 Eosinophils # (Manual) 0.2 (0.0-0.4) K/mm3 Basophils # (Manual) 0.0 (0.0-0.1) K/mm3 Metamyelocytes # 0.0 K/mm3 Myelocytes # 0.0 K/mm3 Promyelocytes # 0.0 K/mm3 Blast Cells # 0.0 K/mm3 WBC Morphology Not Reportable Hypersegmented Neuts Not Reportable Hyposegmented Neuts Not Reportable Hypogranular Neuts Not Reportable Smudge Cells Not Reportable Toxic Granulation Not Reportable Toxic Vacuolation Not Reportable Dohle Bodies Not Reportable Pelger-Huet Anomaly Not Reportable Herminia Rods Not Reportable Platelet Estimate Consistent w auto Clumped Platelets Not Reportable Plt Clumps, EDTA Not Reportable Large Platelets Not Reportable Giant Platelets Not Reportable Platelet Satelliting Not Reportable Plt Morphology Comment Not Reportable RBC Morphology Not Reportable Dimorphic RBCs Not Reportable Polychromasia Rare Hypochromasia Not Reportable Poikilocytosis Not Reportable Anisocytosis 1+ Microcytosis Not Reportable Macrocytosis Not Reportable Spherocytes Not Reportable Pappenheimer Bodies Not Reportable Sickle Cells Not Reportable Target Cells Not Reportable Tear Drop Cells Not Reportable Ovalocytes Few Helmet Cells Not Reportable [place] Bodies Not Reportable [place] Rings Not Reportable David Cells Not Reportable Bite Cells Not Reportable Crenated Cell Not Reportable Elliptocytes Rare Acanthocytes (Spur) Not Reportable Rouleaux Not Reportable Hemoglobin C Crystals Not Reportable Schistocytes Not Reportable Malaria parasites Not Reportable David Bodies Not Reportable Hem Pathologist Commnt No Sodium (137-145) mmol/L Potassium (3.6-5.0) mmol/L Chloride (98-107) mmol/L Carbon Dioxide (22-30) mmol/L Anion Gap mmol/L BUN (7-17) mg/dL Creatinine (0.7-1.2) mg/dL Estimated GFR ml/min BUN/Creatinine Ratio % Glucose (65-100) mg/dL POC Glucose (70-105) Calcium (8.4-10.2) mg/dL Total Bilirubin (0.1-1.2) mg/dL AST (5-40) units/L ALT (7-56) units/L Alkaline Phosphatase (35-129) units/L Total Protein (6.3-8.2) g/dL Albumin (3.9-5) g/dL Albumin/Globulin Ratio % TSH 1.220 (0.270-4.200) mlU/mL Urine Color (Yellow) Urine Turbidity (Clear) Urine pH (5.0-7.0) Ur Specific [place] (1.003-1.030) Urine Protein (Negative) mg/dL Urine Glucose (UA) (Negative) mg/dL Urine Ketones (Negative) mg/dL Urine Blood (Negative) Urine Nitrite (Negative) Urine Bilirubin (Negative) Urine Urobilinogen (<2.0) mg/dL Ur Leukocyte Esterase (Negative) Urine WBC (Auto) (0.0-6.0) /HPF Urine RBC (Auto) (0.0-6.0) /HPF U Epithel Cells (Auto) (0-13.0) /HPF Urine Mucus /HPF Urine Opiates Screen Urine Methadone Screen Ur Barbiturates Screen Ur Phencyclidine Scrn Ur Amphetamines Screen U Benzodiazepines Scrn Urine Cocaine Screen U Marijuana (THC) Screen Drugs of Abuse Note Plasma/Serum Alcohol < 0.01 (0-0.07) % 06/27/18 Range/Units 11:44 WBC (4.5-11.0) K/mm3 RBC (3.65-5.03) M/mm3 Hgb (10.1-14.3) gm/dl Hct (30.3-42.9) % MCV (79-97) fl MCH (28-32) pg MCHC (30-34) % RDW (13.2-15.2) % Plt Count (140-440) K/mm3 Add Manual Diff Total Counted Seg Neuts % (Manual) (40.0-70.0) % Band Neutrophils % % Lymphocytes % (Manual) (13.4-35.0) % Reactive Lymphs % (Man) % Monocytes % (Manual) (0.0-7.3) % Eosinophils % (Manual) (0.0-4.3) % Basophils % (Manual) (0.0-1.8) % Metamyelocytes % % Myelocytes % % Promyelocytes % % Blast Cells % % Nucleated RBC % Seg Neutrophils # Man (1.8-7.7) K/mm3 Band Neutrophils # K/mm3 Lymphocytes # (Manual) (1.2-5.4) K/mm3 Abs React Lymphs (Man) K/mm3 Monocytes # (Manual) (0.0-0.8) K/mm3 Eosinophils # (Manual) (0.0-0.4) K/mm3 Basophils # (Manual) (0.0-0.1) K/mm3 Metamyelocytes # K/mm3 Myelocytes # K/mm3 Promyelocytes # K/mm3 Blast Cells # K/mm3 WBC Morphology Hypersegmented Neuts Hyposegmented Neuts Hypogranular Neuts Smudge Cells Toxic Granulation Toxic Vacuolation Dohle Bodies Pelger-Huet Anomaly Herminia Rods Platelet Estimate Clumped Platelets Plt Clumps, EDTA Large Platelets Giant Platelets Platelet Satelliting Plt Morphology Comment RBC Morphology Dimorphic RBCs Polychromasia Hypochromasia Poikilocytosis Anisocytosis Microcytosis Macrocytosis Spherocytes Pappenheimer Bodies Sickle Cells Target Cells Tear Drop Cells Ovalocytes Helmet Cells [place] Bodies [place] Rings [place] Cells Bite Cells Crenated Cell Elliptocytes Acanthocytes (Spur) Rouleaux Hemoglobin C Crystals Schistocytes Malaria parasites David Bodies Hem Pathologist Commnt Sodium 140 (137-145) mmol/L Potassium 4.5 (3.6-5.0) mmol/L Chloride 102.3 (98-107) mmol/L Carbon Dioxide 23 (22-30) mmol/L Anion Gap 19 mmol/L BUN 13 (7-17) mg/dL Creatinine 1.0 (0.7-1.2) mg/dL Estimated GFR > 60 ml/min BUN/Creatinine Ratio 13 % Glucose 115 H (65-100) mg/dL POC Glucose (70-105) Calcium 9.1 (8.4-10.2) mg/dL Total Bilirubin 0.50 (0.1-1.2) mg/dL AST 68 H (5-40) units/L ALT 32 (7-56) units/L Alkaline Phosphatase 268 H (35-129) units/L Total Protein 8.3 H (6.3-8.2) g/dL Albumin 3.5 L (3.9-5) g/dL Albumin/Globulin Ratio 0.7 % TSH (0.270-4.200) mlU/mL Urine Color (Yellow) Urine Turbidity (Clear) Urine pH (5.0-7.0) Ur Specific [place] (1.003-1.030) Urine Protein (Negative) mg/dL Urine Glucose (UA) (Negative) mg/dL Urine Ketones (Negative) mg/dL Urine Blood (Negative) Urine Nitrite (Negative) Urine Bilirubin (Negative) Urine Urobilinogen (<2.0) mg/dL Ur Leukocyte Esterase (Negative) Urine WBC (Auto) (0.0-6.0) /HPF Urine RBC (Auto) (0.0-6.0) /HPF U Epithel Cells (Auto) (0-13.0) /HPF Urine Mucus /HPF Urine Opiates Screen Urine Methadone Screen Ur Barbiturates Screen Ur Phencyclidine Scrn Ur Amphetamines Screen U Benzodiazepines Scrn Urine Cocaine Screen U Marijuana (THC) Screen Drugs of Abuse Note Plasma/Serum Alcohol (0-0.07) % 06/27/18 11:45 EKG obtained 1114 Sinus tachycardia rate 100 bpm left axis deviation no ST elevation or signs of ischemia - Medical Decision Making Mrs. Long presents with fever and altered mental status. No evidence of urinary tract infection or pneumonia. She received meningitis coverage antibiotics ceftriaxone and vancomycin in the ED. With recent knee surgery, possible source of infection. However, no joint effusion on exam. Daughter explained that Ms. Long had total knee replacement in April 2 months prior. I discussed imaging guided LP with radiologist who requested first attempt in ED. Patient is on Plavix. Admitted to hospitalist service in guarded condition. I obtained consent for lumbar puncture. Due to habitus, lumbar puncture was unsuccessful in lateral decubitus position. Critical Care Time: Yes Critical care time in (mins) excluding proc time.: 40 Critical care attestation.: If time is entered above; I have spent that time in minutes in the direct care of this critically ill patient, excluding procedure time. 40 minutes of critical care time excluding procedures were used in the care of the patient. Patient required multiple assessments and interventions. I reviewed the electronic medical record. I spoke with consultants involved in the care of the patient. Upon arrival patient had hypotension 93/56, she immediately received appropriate resuscitation with fluid and antibiotics. ED Disposition Clinical Impression: Acute encephalopathy, Sepsis Disposition: OP ADMIT IP TO THIS HOSP Is pt being admited?: Yes Does the pt Need Aspirin: No Condition: Stable
[2018-06-27 12:06] LABS: Bilirubin,Urine NEG (Negative); Blood,Urine NEG (Negative); Color,Urine Yellow (Yellow); Mucus,Urine FEW /HPF; Protein,Urine <15 mg/dL mg/dL (Negative); WBC,Urine < 1.0 /HPF (0.0-6.0)
[2018-06-27] MEDS: ROCEPHIN/NS 2 GM/100 ML 2 GM/100 ML BAG IV SCH ×2 (12:12→22:42)
[2018-06-27 12:15] LABS: Amphetamine Screen,Urine PRESUMPTIVE NEGATIVE; Benzodiazepines Screen,Urine PRESUMPTIVE NEGATIVE; Cannabinoid Screen,Urine PRESUMPTIVE NEGATIVE; Cocaine Screen,Urine PRESUMPTIVE NEGATIVE; Methadone Screen,Urine PRESUMPTIVE NEGATIVE; Opiate Screen,Urine PRESUMPTIVE NEGATIVE
[2018-06-27 12:25] LABS: Hematocrit 37.8 % (30.3-42.9); Hemoglobin 12.3 gm/dl (10.1-14.3); Mean Corpuscular HGB Conc 33 % (30-34); Mean Corpuscular Volume 84 fl (79-97); Platelet Count 174 K/mm3 (140-440); Red Blood Count 4.53 M/mm3 (3.65-5.03); Red Cell Distribution Width 17.1 % (13.2-15.2)
[2018-06-27 12:49] LABS: Alanine Aminotransferase 32 units/L (7-56); Albumin 3.5 g/dL (3.9-5); BUN/Creatinine Ratio 13; Blood Urea Nitrogen 13 mg/dL (7-17); Calcium 9.1 mg/dL (8.4-10.2); Hemolysis Index 21
[2018-06-27 12:54] LABS: Basophils % (Manual) 0 % (0.0-1.8); Total Cells Counted 100
[2018-06-27 12:55] LABS: Anisocytosis 1+; Ovalocytes Few; Platelet Estimate Consistent w Auto
--- NOTE | 2018-06-27 14:05 | Cat Scan Report ---
FINAL REPORT EXAM: CT HEAD/BRAIN WO CON HISTORY: fever ams COMPARISON: CT of the head performed on 05/20/2017 TECHNIQUE: Multiple contiguous axial images were obtained from the skullbase to the vertex without a dministration of IV contrast. FINDINGS: There is no parenchymal hemorrhage or extra-axial fluid collection. There is no mass or mass effect. There is no acute territorial infarct. The ventricles are midline and are not enlarged. The subarachn oid spaces and basilar cisterns are clear. There is no skull fracture. The paranasal sinuses and mast oid air cells are clear. The bilateral orbits are intact. IMPRESSION: No acute intracranial abnormality.
[2018-06-27] MEDS ORDERED: SODIUM CHLORIDE FLUSH SYRINGE 10 ML IV PRN (14:31)
[2018-06-27] MEDS ORDERED: DULCOLAX PR PRN (14:31)
[2018-06-27] MEDS ORDERED: ZOFRAN IV PRN (14:31)
[2018-06-27] MEDS ORDERED: TYLENOL PO PRN (14:31)
[2018-06-27] MEDS ORDERED: REGLAN PO PRN (14:31)
[2018-06-27] MEDS ORDERED: MILK OF MAGNESIA PO PRN (14:31)
[2018-06-27] MEDS ORDERED: PHENERGAN PR PRN (14:31)
--- NOTE | 2018-06-27 14:31 | History and Physical Report ---
History of Present Illness Chief complaint: confusion History of present illness: 67 YO Female with MO, Obesity Hypoventilation, CKD, Depression, CVA, DM, HTN, Sarcoidosis presents to ED for evaluation. Pt is lethargic and unable to provide history. Pt history taken from ED staff, and medical record. As per staff, the patient was transported to [facility] for further care and evaluation. Pt seen and evaluated in ED and found to have Encephalopathy, SIRS, as well as suspected CVA. Pt admitted to telemetry and initiated on empiric antibiotic therapy for suspected bacterial meningitis as well as CVA protocol, . Pt is lethargic but is able to protect her airway, and has a positive gag reflex. No further history obtainable. LP attempted in ED. IR consulted for Lumbar puncture. Neurology consulted. Past History Past Medical History: diabetes, hypertension, renal failure, stroke, other (Sarcoid, Asthma) Past Surgical History: No surgical history (reviewed) Social history: single. denies: smoking, alcohol abuse, prescription drug abuse Family history: diabetes, hypertension Medications and Allergies Allergies Allergy/AdvReac Type Severity Reaction Status Date / Time ciprofloxacin [From Cipro] Allergy Unknown Verified 04/24/18 21:07 lisinopril Allergy Unknown Verified 04/24/18 21:07 Lodine Allergy Unknown Uncoded 04/24/18 21:07 Home Medications Medication Instructions Recorded Confirmed Last Taken Type Dexlansoprazole (Nf) [Dexilant 60 mg PO DAILY 05/22/18 06/27/18 Unknown History (Nf)] Citalopram [celeXA] 20 mg PO QDAY 06/01/18 06/27/18 Unknown History Clopidogrel [Plavix] 75 mg PO QDAY 06/01/18 06/27/18 Unknown History Fluticasone/Vilanterol [Breo 1 each IH DAILY 06/01/18 06/27/18 Unknown History Ellipta 100-25 Mcg INH] Folic Acid [Folvite] 1 mg PO QDAY 06/01/18 06/27/18 Unknown History Furosemide [Lasix] 80 mg PO DAILY 06/01/18 06/27/18 Unknown History Ipratropium (Nf) [Atrovent] 2 puff IH Q6HR 06/01/18 06/27/18 Unknown History Levothyroxine [Synthroid] 75 mcg PO QAM 06/01/18 06/27/18 Unknown History Linaclotide (Nf) [Linzess (Nf)] 290 mcg PO QDAY 06/01/18 06/27/18 Unknown History Losartan [Cozaar] 100 mg PO QDAY 06/01/18 06/27/18 Unknown History Metoprolol Tartrate 25 mg PO DAILY 06/01/18 06/27/18 Unknown History Potassium Chloride [Klor-Con] 20 meq PO BID 06/01/18 06/27/18 Unknown History Pregabalin [Lyrica] 150 mg PO BID 06/01/18 06/27/18 Unknown History glipiZIDE [glipiZIDE ER] 5 mg PO QAM 06/01/18 06/27/18 Unknown History hydrOXYzine HCl [Hydroxyzine HCl] 25 mg PO BID 06/01/18 06/27/18 Unknown History Active Meds: Active Medications Ceftriaxone Sodium (Rocephin/Ns 2 Gm/100 Ml) 2 gm in 100 mls @ 200 mls/hr IV Q12HR FRANDY; Protocol Last Admin: 06/27/18 12:12 Dose: 200 mls/hr Documented by: Review of Systems ROS unobtainable: due to mental status Exam - Constitutional Vitals: Temp Pulse Resp BP Pulse Ox 101.1 F H 104 H 17 116/70 100 06/27/18 11:00 06/27/18 11:00 06/27/18 11:00 06/27/18 11:00 06/27/18 11:00 General appearance: Present: mild distress, obese - EENT Eyes: Present: miosis ENT: hearing intact, clear oral mucosa - Neck Neck: Present: supple - Respiratory Respiratory effort: normal Respiratory: bilateral: CTA - Cardiovascular Heart Sounds: Present: S1 & S2. Absent: rub, click - Extremities Extremities: pulses symmetrical, No edema Peripheral Pulses: within normal limits - Abdominal General gastrointestinal: Present: soft, non-tender, non-distended, normal bowel sounds Female genitourinary: Present: normal - Integumentary Integumentary: Present: clear, warm, dry - Musculoskeletal Musculoskeletal: generalized weakness - Psychiatric Psychiatric: no appropriate mood/affect, no intact judgment & insight, no memory intact - Neurologic Neurologic: CNII-XII intact, moves all extremities, no gait normal Results - Labs CBC & Chem 7: 06/27/18 11:44 06/27/18 11:44 Labs: Abnormal lab results 06/27/18 06/27/18 06/27/18 Range/Units 11:00 11:44 11:44 WBC 15.1 H (4.5-11.0) K/mm3 MCH 27 L (28-32) pg RDW 17.1 H (13.2-15.2) % Seg Neuts % (Manual) 95.0 H (40.0-70.0) % Lymphocytes % (Manual) 3.0 L (13.4-35.0) % Seg Neutrophils # Man 14.3 H (1.8-7.7) K/mm3 Lymphocytes # (Manual) 0.5 L (1.2-5.4) K/mm3 Glucose 115 H (65-100) mg/dL POC Glucose 126 H (70-105) AST 68 H (5-40) units/L Alkaline Phosphatase 268 H (35-129) units/L Total Protein 8.3 H (6.3-8.2) g/dL Albumin 3.5 L (3.9-5) g/dL Assessment and Plan - Patient Problems (1) Encephalopathy Current Visit: Yes Status: Acute Plan to address problem: CT Head, Neuro checks, supportive care, seizure precautions. (2) SIRS (systemic inflammatory response syndrome) Current Visit: Yes Status: Acute Plan to address problem: Empiric antibiotic therapy, Lumbar puncture, CBC, CMP, (3) CVA (cerebral vascular accident) Current Visit: Yes Status: Suspected Qualifiers: Laterality of affected vessel: unspecified Plan to address problem: Stroke protocol: CT Head, MRI Brain, MRA Brain, Echo, Carotid doppler, antiplatelet therapy, PT/OT/ Speech Therapy, Neuro checks, lipid panel, statin therapy, Neurology consulted (4) Obesity hypoventilation syndrome Current Visit: Yes Status: Acute Plan to address problem: Supplemental oxygen, nebulizer therapy, pulse oximetry, NIPPV as clinically indicated (5) DVT prophylaxis Current Visit: Yes Status: Acute Plan to address problem: SCD to BLE while in bed
[2018-06-27 14:59] LABS: INR 1.04 (0.87-1.13)
[2018-06-27 15:00] LABS: Partial Thromboplastin Time 29.8 Sec. (24.2-36.6)
[2018-06-27] MEDS ORDERED: LEVAQUIN ONE (15:09)
[2018-06-27] MEDS ORDERED: XYLOCAINE 1% 20 mL ONE (15:09)
[2018-06-27] MEDS: ATARAX PO SCH (22:44)
[2018-06-27] MEDS: LYRICA PO SCH (22:44)
[2018-06-27] MEDS: POTASSIUM CHLORIDE PO SCH (22:44)
[2018-06-28] MEDS ORDERED: NON-FORMULARY (Ipratropium (Nf) 2 PUFF) IH SCH
[2018-06-28] MEDS: ATROVENT IH SCH ×4 (01:14→20:37)
--- NOTE | 2018-06-28 02:40 | Vascular Lab Report ---
FINAL REPORT EXAM: VL CAROTID DUPLEX BILAT HISTORY: stroke COMPARISON: None available. TECHNIQUE: Several real-time grayscale and color Doppler images were obtained. FINDINGS: On the right, peak systolic velocity within the common carotid artery 104 centimeters/second, interna l carotid artery 91, external carotid artery 121. On the left, peak systolic velocity within the common carotid artery 72 centimeters/second, internal carotid artery 87 centimeters/second, external carotid artery 91. Antegrade flow within the vertebral arteries bilaterally. Mild calcified plaque at the left carotid bifurcation and proximal left internal carotid artery. Jyoti mated stenosis less than 50 percent by velocity criteria. No hemodynamically significant plaque forma tion by velocity criteria for NASCET criteria. IMPRESSION: Mild calcified plaque at the left carotid bifurcation and proximal left internal carotid artery. Jyoti mated stenosis less than 50 percent by velocity criteria. No hemodynamically significant plaque forma tion by velocity criteria for NASCET criteria.
[2018-06-28] MEDS: SYNTHROID PO SCH (06:47)
[2018-06-28] MEDS: BROVANA NEBU IH SCH ×2 (08:14→20:36)
[2018-06-28] MEDS: PULMICORT IH SCH ×2 (08:14→20:36)
[2018-06-28] MEDS: LOPRESSOR PO SCH (08:18)
[2018-06-28] MEDS ORDERED: NON-FORMULARY (Linaclotide (Nf) 290 MCG) PO SCH (10:00)
[2018-06-28] MEDS ORDERED: NON-FORMULARY (Fluticasone/Vilanterol [Breo Ellipta 100-25 Mcg Inh] 1 EACH) IH SCH (10:00)
[2018-06-28] MEDS: LASIX PO SCH (10:04)
[2018-06-28] MEDS: COZAAR PO SCH (10:05)
[2018-06-28] MEDS: POTASSIUM CHLORIDE PO SCH ×2 (10:09→22:22)
[2018-06-28] MEDS: LYRICA PO SCH ×2 (10:13→22:22)
[2018-06-28] MEDS: ATARAX PO SCH ×2 (10:18→22:22)
--- NOTE | 2018-06-28 10:22 | Progress Note ---
Assessment and Plan Assessment and plan: Encephalopathy Improving, Now awake, less lethargic Etiolohgy unclear CT head unremarkable Diabetes mellitus type 2 Check fingerstick qac and hs Hypertension Monitor BP Hyperlipidemia Sarcoidosis history of Stroke Depression Full code status History Interval history: Altered mental status, improving Less shortness of breath Hospitalist Physical - Physical exam Narrative exam: GEN: Not in acute distress, Morbid Obesity HEENT: Normocephalic, atraumatic, Neck: supple, No JVD Lungs: Clear to auscultation bilaterally, Abd:soft, non tender, non distended, normal bowel sounds Ext: No edema, no clubbing or cyanosis Neuro:Awake,alert,oriented x 3, mild confused, moves all ext Skin:No rash - Constitutional Vitals: Temp Pulse Resp BP Pulse Ox 99.8 F H 72 14 139/77 94 06/27/18 20:19 06/28/18 02:22 06/28/18 01:31 06/28/18 04:31 06/28/18 04:31 Results - Labs CBC & Chem 7: 06/27/18 11:44 06/27/18 11:44 Labs: Laboratory Last Values WBC 15.1 K/mm3 (4.5-11.0) H 06/27/18 11:44 RBC 4.53 M/mm3 (3.65-5.03) 06/27/18 11:44 Hgb 12.3 gm/dl (10.1-14.3) 06/27/18 11:44 Hct 37.8 % (30.3-42.9) 06/27/18 11:44 MCV 84 fl (79-97) 06/27/18 11:44 MCH 27 pg (28-32) L 06/27/18 11:44 MCHC 33 % (30-34) 06/27/18 11:44 RDW 17.1 % (13.2-15.2) H 06/27/18 11:44 Plt Count 174 K/mm3 (140-440) 06/27/18 11:44 Add Manual Diff Complete 06/27/18 11:44 Total Counted 100 06/27/18 11:44 Seg Neuts % (Manual) 95.0 % (40.0-70.0) H 06/27/18 11:44 Band Neutrophils % 0 % 06/27/18 11:44 Lymphocytes % (Manual) 3.0 % (13.4-35.0) L 06/27/18 11:44 Reactive Lymphs % (Man) 0 % 06/27/18 11:44 Monocytes % (Manual) 1.0 % (0.0-7.3) 06/27/18 11:44 Eosinophils % (Manual) 1.0 % (0.0-4.3) 06/27/18 11:44 Basophils % (Manual) 0 % (0.0-1.8) 06/27/18 11:44 Metamyelocytes % 0 % 06/27/18 11:44 Myelocytes % 0 % 06/27/18 11:44 Promyelocytes % 0 % 06/27/18 11:44 Blast Cells % 0 % 06/27/18 11:44 Nucleated RBC % Not Reportable 06/27/18 11:44 Seg Neutrophils # Man 14.3 K/mm3 (1.8-7.7) H 06/27/18 11:44 Band Neutrophils # 0.0 K/mm3 06/27/18 11:44 Lymphocytes # (Manual) 0.5 K/mm3 (1.2-5.4) L 06/27/18 11:44 Abs React Lymphs (Man) 0.0 K/mm3 06/27/18 11:44 Monocytes # (Manual) 0.2 K/mm3 (0.0-0.8) 06/27/18 11:44 Eosinophils # (Manual) 0.2 K/mm3 (0.0-0.4) 06/27/18 11:44 Basophils # (Manual) 0.0 K/mm3 (0.0-0.1) 06/27/18 11:44 Metamyelocytes # 0.0 K/mm3 06/27/18 11:44 Myelocytes # 0.0 K/mm3 06/27/18 11:44 Promyelocytes # 0.0 K/mm3 06/27/18 11:44 Blast Cells # 0.0 K/mm3 06/27/18 11:44 WBC Morphology Not Reportable 06/27/18 11:44 Hypersegmented Neuts Not Reportable 06/27/18 11:44 Hyposegmented Neuts Not Reportable 06/27/18 11:44 Hypogranular Neuts Not Reportable 06/27/18 11:44 Smudge Cells Not Reportable 06/27/18 11:44 Toxic Granulation Not Reportable 06/27/18 11:44 Toxic Vacuolation Not Reportable 06/27/18 11:44 Dohle Bodies Not Reportable 06/27/18 11:44 Pelger-Huet Anomaly Not Reportable 06/27/18 11:44 Hermiina Rods Not Reportable 06/27/18 11:44 Platelet Estimate Consistent w auto 06/27/18 11:44 Clumped Platelets Not Reportable 06/27/18 11:44 Plt Clumps, EDTA Not Reportable 06/27/18 11:44 Large Platelets Not Reportable 06/27/18 11:44 Giant Platelets Not Reportable 06/27/18 11:44 Platelet Satelliting Not Reportable 06/27/18 11:44 Plt Morphology Comment Not Reportable 06/27/18 11:44 RBC Morphology Not Reportable 06/27/18 11:44 Dimorphic RBCs Not Reportable 06/27/18 11:44 Polychromasia Rare 06/27/18 11:44 Hypochromasia Not Reportable 06/27/18 11:44 Poikilocytosis Not Reportable 06/27/18 11:44 Anisocytosis 1+ 06/27/18 11:44 Microcytosis Not Reportable 06/27/18 11:44 Macrocytosis Not Reportable 06/27/18 11:44 Spherocytes Not Reportable 06/27/18 11:44 Pappenheimer Bodies Not Reportable 06/27/18 11:44 Sickle Cells Not Reportable 06/27/18 11:44 Target Cells Not Reportable 06/27/18 11:44 Tear Drop Cells Not Reportable 06/27/18 11:44 Ovalocytes Few 06/27/18 11:44 Helmet Cells Not Reportable 06/27/18 11:44 [place] Bodies Not Reportable 06/27/18 11:44 [place] Rings Not Reportable 06/27/18 11:44 David Cells Not Reportable 06/27/18 11:44 Bite Cells Not Reportable 06/27/18 11:44 Crenated Cell Not Reportable 06/27/18 11:44 Elliptocytes Rare 06/27/18 11:44 Acanthocytes (Spur) Not Reportable 06/27/18 11:44 Rouleaux Not Reportable 06/27/18 11:44 Hemoglobin C Crystals Not Reportable 06/27/18 11:44 Schistocytes Not Reportable 06/27/18 11:44 Malaria parasites Not Reportable 06/27/18 11:44 David Bodies Not Reportable 06/27/18 11:44 Hem Pathologist Commnt No 06/27/18 11:44 PT 14.2 Sec. (12.2-14.9) 06/27/18 14:31 INR 1.04 (0.87-1.13) 06/27/18 14:31 APTT 29.8 Sec. (24.2-36.6) 06/27/18 14:31 Sodium 140 mmol/L (137-145) 06/27/18 11:44 Potassium 4.5 mmol/L (3.6-5.0) 06/27/18 11:44 Chloride 102.3 mmol/L (98-107) 06/27/18 11:44 Carbon Dioxide 23 mmol/L (22-30) 06/27/18 11:44 Anion Gap 19 mmol/L 06/27/18 11:44 BUN 13 mg/dL (7-17) 06/27/18 11:44 Creatinine 1.0 mg/dL (0.7-1.2) 06/27/18 11:44 Estimated GFR > 60 ml/min 06/27/18 11:44 BUN/Creatinine Ratio 13 % 06/27/18 11:44 Glucose 115 mg/dL (65-100) H 06/27/18 11:44 POC Glucose 126 (70-105) H 06/27/18 11:00 Lactic Acid 1.70 mmol/L (0.7-2.0) 06/27/18 14:31 Calcium 9.1 mg/dL (8.4-10.2) 06/27/18 11:44 Total Bilirubin 0.50 mg/dL (0.1-1.2) 06/27/18 11:44 AST 68 units/L (5-40) H 06/27/18 11:44 ALT 32 units/L (7-56) 06/27/18 11:44 Alkaline Phosphatase 268 units/L (35-129) H 06/27/18 11:44 Total Protein 8.3 g/dL (6.3-8.2) H 06/27/18 11:44 Albumin 3.5 g/dL (3.9-5) L 06/27/18 11:44 Albumin/Globulin Ratio 0.7 % 06/27/18 11:44 TSH 1.220 mlU/mL (0.270-4.200) 06/27/18 11:44 Urine Color Yellow (Yellow) 06/27/18 11:39 Urine Turbidity Clear (Clear) 06/27/18 11:39 Urine pH 5.0 (5.0-7.0) 06/27/18 11:39 Ur Specific [place] 1.021 (1.003-1.030) 06/27/18 11:39 Urine Protein <15 mg/dl mg/dL (Negative) 06/27/18 11:39 Urine Glucose (UA) Neg mg/dL (Negative) 06/27/18 11:39 Urine Ketones Neg mg/dL (Negative) 06/27/18 11:39 Urine Blood Neg (Negative) 06/27/18 11:39 Urine Nitrite Neg (Negative) 06/27/18 11:39 Urine Bilirubin Neg (Negative) 06/27/18 11:39 Urine Urobilinogen 2.0 mg/dL (<2.0) 06/27/18 11:39 Ur Leukocyte Esterase Neg (Negative) 06/27/18 11:39 Urine WBC (Auto) < 1.0 /HPF (0.0-6.0) 06/27/18 11:39 Urine RBC (Auto) 3.0 /HPF (0.0-6.0) 06/27/18 11:39 U Epithel Cells (Auto) < 1.0 /HPF (0-13.0) 06/27/18 11:39 Urine Mucus Few /HPF 06/27/18 11:39 Urine Opiates Screen Presumptive negative 06/27/18 11:39 Urine Methadone Screen Presumptive negative 06/27/18 11:39 Ur Barbiturates Screen Presumptive negative 06/27/18 11:39 Ur Phencyclidine Scrn Presumptive negative 06/27/18 11:39 Ur Amphetamines Screen Presumptive negative 06/27/18 11:39 U Benzodiazepines Scrn Presumptive negative 06/27/18 11:39 Urine Cocaine Screen Presumptive negative 06/27/18 11:39 U Marijuana (THC) Screen Presumptive negative 06/27/18 11:39 Drugs of Abuse Note Disclamer 06/27/18 11:39 Plasma/Serum Alcohol < 0.01 % (0-0.07) 06/27/18 11:44
--- NOTE | 2018-06-28 17:21 | Consultation ---
History of Present Illness Consult date: 06/28/18 Chief complaint: confusion History of present illness: This is a 67 YO F who presented to the ED with a sepsis type picture. Pt was also thought to have focal neuro deficits which aren't specified int he notes. Pt really doesn't remember much about what got her here but seems to be at baseline now. Says she was feeling bad since this past weekend. Past History Past Medical History: diabetes, hypertension, renal failure, stroke, other (Sarcoid, Asthma) Past Surgical History: No surgical history (reviewed) Social history: single. denies: smoking, alcohol abuse, prescription drug abuse Family history: diabetes, hypertension Medications and Allergies Allergies Allergy/AdvReac Type Severity Reaction Status Date / Time ciprofloxacin [From Cipro] Allergy Unknown Verified 04/24/18 21:07 lisinopril Allergy Unknown Verified 04/24/18 21:07 Lodine Allergy Unknown Uncoded 04/24/18 21:07 Home Medications Medication Instructions Recorded Confirmed Last Taken Type Dexlansoprazole (Nf) [Dexilant 60 mg PO DAILY 05/22/18 06/27/18 Unknown History (Nf)] Citalopram [celeXA] 20 mg PO QDAY 06/01/18 06/27/18 Unknown History Clopidogrel [Plavix] 75 mg PO QDAY 06/01/18 06/27/18 Unknown History Fluticasone/Vilanterol [Breo 1 each IH DAILY 06/01/18 06/27/18 Unknown History Ellipta 100-25 Mcg INH] Folic Acid [Folvite] 1 mg PO QDAY 06/01/18 06/27/18 Unknown History Furosemide [Lasix] 80 mg PO DAILY 06/01/18 06/27/18 Unknown History Ipratropium (Nf) [Atrovent] 2 puff IH Q6HR 06/01/18 06/27/18 Unknown History Levothyroxine [Synthroid] 75 mcg PO QAM 06/01/18 06/27/18 Unknown History Linaclotide (Nf) [Linzess (Nf)] 290 mcg PO QDAY 06/01/18 06/27/18 Unknown History Losartan [Cozaar] 100 mg PO QDAY 06/01/18 06/27/18 Unknown History Metoprolol Tartrate 25 mg PO DAILY 06/01/18 06/27/18 Unknown History Potassium Chloride [Klor-Con] 20 meq PO BID 06/01/18 06/27/18 Unknown History Pregabalin [Lyrica] 150 mg PO BID 06/01/18 06/27/18 Unknown History glipiZIDE [glipiZIDE ER] 5 mg PO QAM 06/01/18 06/27/18 Unknown History hydrOXYzine HCl [Hydroxyzine HCl] 25 mg PO BID 06/01/18 06/27/18 Unknown History Active Meds: Active Medications Acetaminophen (Tylenol) 650 mg PO Q4H PRN PRN Reason: Pain, Mild (1-3) Arformoterol Tartrate (Brovana Nebu) 15 mcg IH Q12HRT [facility] Last Admin: 06/28/18 08:14 Dose: 15 mcg Documented by: Aspirin (Aspirin) 325 mg PO QDAY [facility] Atorvastatin Calcium (Lipitor) 40 mg PO QHS [facility] Last Admin: 06/27/18 22:44 Dose: Not Given Documented by: Bisacodyl (Dulcolax) 10 mg UT QDAY PRN PRN Reason: Constipation Budesonide (Pulmicort) 0.5 mg IH Q12HRT [facility] Last Admin: 06/28/18 08:14 Dose: 0.5 mg Documented by: Citalopram Hydrobromide (Celexa) 20 mg PO QDAY [facility] Clopidogrel Bisulfate (Plavix) 75 mg PO QDAY [facility] Folic Acid (Folvite) 1 mg PO QDAY [facility] Furosemide (Lasix) 80 mg PO DAILY [facility] Hydroxyzine HCl (Atarax) 25 mg PO BID [facility] Last Admin: 06/27/18 22:44 Dose: Not Given Documented by: Ceftriaxone Sodium (Rocephin/Ns 2 Gm/100 Ml) 2 gm in 100 mls @ 200 mls/hr IV Q12HR [facility]; Protocol Last Admin: 06/27/18 22:42 Dose: 200 mls/hr Documented by: Ipratropium [place] (Atrovent) 0.5 mg IH Q6HRT [facility] Last Admin: 06/28/18 13:20 Dose: 0.5 mg Documented by: Levothyroxine Sodium (Synthroid) 75 mcg PO QAM@0600 [facility] Last Admin: 06/28/18 06:47 Dose: Not Given Documented by: Losartan Potassium (Cozaar) 100 mg PO QDAY [facility] Magnesium Hydroxide (Milk Of Magnesia) 30 ml PO Q4H PRN PRN Reason: Constipation Metoclopramide HCl (Reglan) 10 mg PO Q6H PRN PRN Reason: Nausea And Vomiting Metoprolol Tartrate (Lopressor) 25 mg PO DAILY@0800 [facility] Miscellaneous Medication (Linaclotide (Nf)) 290 mcg PO QDAY [facility] Ondansetron HCl (Zofran) 4 mg IV Q8H PRN PRN Reason: Nausea And Vomiting Pantoprazole Sodium (Protonix) 40 mg PO DAILY [facility] Potassium Chloride (Potassium Chloride) 20 meq PO BID [facility] Last Admin: 06/27/18 22:44 Dose: Not Given Documented by: Pregabalin (Lyrica) 150 mg PO BID [facility] Last Admin: 06/27/18 22:44 Dose: Not Given Documented by: Promethazine HCl (Phenergan) 25 mg UT Q6H PRN PRN Reason: Nausea And Vomiting Sodium Chloride (Sodium Chloride Flush Syringe 10 Ml) 10 ml IV PRN PRN PRN Reason: LINE FLUSH Physical Examination - Vital Signs Vital Signs: Vital Signs Pulse Ox 95 06/27/18 10:50 - EENT EENT: Present: PERRL, mucous membranes moist - Respiratory Respiratory: Present: lungs clear - Cardiovascular Cardiovascular: Present: regular rate Extremities: Present: no peripheral edema bilatateraly - Gastrointestinal Gastrointestinal: Present: normoactive bowel sounds - Neurologic Cranial nerve examination: PERRL, EOMI, anisocoria, nystagmus, V1/V2/V3 grossly intact, face symmetric, tongue midline Speech examination: intact Motor examination - right side: 5/5: biceps, triceps, wrist flexion, wrist extension, fruit loader, hip flexors, knee extensors, dorsiflexion, toe extension (EHL), plantarflexion Motor examination - left side: 5/5: biceps, triceps, wrist flexion, wrist extension, fruit loader, hip flexors, knee extensors, dorsiflexion, toe extension (EHL), plantarflexion Reflex and gait examination: normal gait Reflexes: 0: ankle, bicep, knee, tricep Results - Laboratory Findings CBC and BMP: 06/27/18 11:44 06/27/18 11:44 Abnormal Lab Findings: Abnormal Labs 06/27/18 06/27/18 06/27/18 11:00 11:44 11:44 WBC 15.1 H MCH 27 L RDW 17.1 H Seg Neuts % (Manual) 95.0 H Lymphocytes % (Manual) 3.0 L Seg Neutrophils # Man 14.3 H Lymphocytes # (Manual) 0.5 L POC ABG pO2 Glucose 115 H POC Glucose 126 H AST 68 H Alkaline Phosphatase 268 H Total Protein 8.3 H Albumin 3.5 L 06/28/18 13:34 WBC MCH RDW Seg Neuts % (Manual) Lymphocytes % (Manual) Seg Neutrophils # Man Lymphocytes # (Manual) POC ABG pO2 74 L Glucose POC Glucose AST Alkaline Phosphatase Total Protein Albumin - Diagnostic Findings Additional findings: Head CT, nothing acute carotids nothing hemodynamically significant Assessment and Plan This is a 67 YO F with delirium secondary to sepsis, resolving Recommend: Agree with MRI Brain for completeness COntinue care for her medical issues as you are doing POC discussed with pt at bedside As pt's medical issues clear suspect that her mentation will stay at baseline. Please call if there are questions.
[2018-06-28 18:01] LABS: Chol/HDL Ratio 3.51 %
[2018-06-28] MEDS: PLAVIX PO SCH (20:16)
[2018-06-28] MEDS: FOLVITE PO SCH (20:17)
[2018-06-28] MEDS: celeXA PO SCH (20:17)
[2018-06-28] MEDS: ASPIRIN PO SCH (20:17)
[2018-06-28] MEDS: PROTONIX PO SCH (20:23)
[2018-06-28] MEDS: ROCEPHIN/NS 2 GM/100 ML 2 GM/100 ML BAG IV SCH ×2 (20:23→22:12)
[2018-06-29] MEDS: ATROVENT IH SCH ×4 (02:20→19:11)
[2018-06-29] MEDS: SYNTHROID PO SCH (05:01)
[2018-06-29] MEDS: ROXICODONE PO PRN ×2 (05:01→14:39)
[2018-06-29 05:35] LABS: Hematocrit 31.8 % (30.3-42.9); Hemoglobin 10.4 gm/dl (10.1-14.3); Mean Corpuscular HGB Conc 33 % (30-34); Mean Corpuscular Volume 84 fl (79-97); Platelet Count 141 K/mm3 (140-440); Red Cell Distribution Width 16.7 % (13.2-15.2)
[2018-06-29 05:57] LABS: BUN/Creatinine Ratio 13; Blood Urea Nitrogen 10 mg/dL (7-17); Calcium 8.6 mg/dL (8.4-10.2); Hemolysis Index 25
[2018-06-29] MEDS ORDERED: XYLOCAINE 1% 20 mL ONE (07:53)
[2018-06-29] MEDS: LOPRESSOR PO SCH (09:13)
[2018-06-29] MEDS: COZAAR PO SCH (09:13)
[2018-06-29] MEDS: PULMICORT IH SCH ×2 (09:43→19:11)
[2018-06-29] MEDS: BROVANA NEBU IH SCH ×2 (09:43→19:11)
[2018-06-29] MEDS: PROTONIX PO SCH (09:55)
[2018-06-29] MEDS: POTASSIUM CHLORIDE PO SCH ×2 (09:55→21:15)
[2018-06-29] MEDS: PLAVIX PO SCH (09:55)
[2018-06-29] MEDS: FOLVITE PO SCH (09:55)
[2018-06-29] MEDS: LASIX PO SCH (09:56)
[2018-06-29] MEDS: ASPIRIN PO SCH (09:56)
[2018-06-29] MEDS: celeXA PO SCH (09:56)
[2018-06-29] MEDS: LYRICA PO SCH ×2 (09:56→21:15)
--- NOTE | 2018-06-29 09:56 | Fluoroscopy Report ---
FLUOROSCOPY TRACKING FOR LUMBAR PUNCTURE History: Altered mental status. Description of procedure: Informed consent was obtained. Sterile technique was utilized. 1% lidocaine for skin anesthesia. Multiple attempts were made at lumbar puncture under fluoroscopic guidance. One fluoroscopic image was saved. This was a difficult exam secondary the patient's body habitus. Lumbar puncture was unsuccessful. A decision was made to terminate the procedure due to patient discomfort. This was discussed with the patient. Impression: Unsuccessful fluoroscopy guided lumbar puncture.
--- NOTE | 2018-06-29 10:08 | Procedure Note ---
Date of procedure: 06/29/18 Pre-op diagnosis: altered mental status Post-op diagnosis: same Procedure: Flouro guided lumbar puncture Anesthesia: local Surgeon: DAOLFO MCBRIDE Estimated blood loss: none Pathology: none Specimen disposition: other (unsuccesful attempts to acquire CSF) Condition: stable Disposition: floor
[2018-06-29] MEDS: ATARAX PO SCH ×2 (10:15→21:15)
[2018-06-29] MEDS: ROCEPHIN/NS 2 GM/100 ML 2 GM/100 ML BAG IV SCH ×2 (12:33→21:15)
--- NOTE | 2018-06-29 13:12 | Progress Note ---
Assessment and Plan Assessment and plan: Encephalopathy Improving, Now awake, alert,oriented X [address] head unremarkable Could not do MRI because of body habitus Unsuccessful LP attempts Fever of 101 on admission Consult ID Physician for fever and AMS Continue Rocephin Blood cultures neg UA neg CXR neg leukocytosis now resolved Diabetes mellitus type 2 Check fingerstick qac and hs Hypertension Monitor BP Hyperlipidemia Sarcoidosis history of Stroke Depression Full code status History Interval history: Altered mental status, now resolved Could not do MRI because of body habitus Unsuccessful LP attempts Hospitalist Physical - Physical exam Narrative exam: GEN: Not in acute distress, Morbid Obesity HEENT: Normocephalic, atraumatic, Neck: supple, No JVD Lungs: Clear to auscultation bilaterally, Abd:soft, non tender, non distended, normal bowel sounds Ext: No edema, no clubbing or cyanosis Neuro:Awake,alert,oriented x 3, No confusion currently, moves all ext Skin:No rash - Constitutional Vitals: Temp Pulse Resp BP Pulse Ox 99.4 F 63 20 131/62 98 06/29/18 11:28 06/29/18 11:28 06/29/18 11:28 06/29/18 11:28 06/29/18 11:28 General appearance: Present: obese Results - Labs CBC & Chem 7: 06/29/18 05:02 06/29/18 05:02 Labs: Laboratory Last Values WBC 7.5 K/mm3 (4.5-11.0) 06/29/18 05:02 RBC 3.80 M/mm3 (3.65-5.03) 06/29/18 05:02 Hgb 10.4 gm/dl (10.1-14.3) 06/29/18 05:02 Hct 31.8 % (30.3-42.9) D 06/29/18 05:02 MCV 84 fl (79-97) 06/29/18 05:02 MCH 27 pg (28-32) L 06/29/18 05:02 MCHC 33 % (30-34) 06/29/18 05:02 RDW 16.7 % (13.2-15.2) H 06/29/18 05:02 Plt Count 141 K/mm3 (140-440) 06/29/18 05:02 Add Manual Diff Complete 06/27/18 11:44 Total Counted 100 06/27/18 11:44 Seg Neuts % (Manual) 95.0 % (40.0-70.0) H 06/27/18 11:44 Band Neutrophils % 0 % 06/27/18 11:44 Lymphocytes % (Manual) 3.0 % (13.4-35.0) L 06/27/18 11:44 Reactive Lymphs % (Man) 0 % 06/27/18 11:44 Monocytes % (Manual) 1.0 % (0.0-7.3) 06/27/18 11:44 Eosinophils % (Manual) 1.0 % (0.0-4.3) 06/27/18 11:44 Basophils % (Manual) 0 % (0.0-1.8) 06/27/18 11:44 Metamyelocytes % 0 % 06/27/18 11:44 Myelocytes % 0 % 06/27/18 11:44 Promyelocytes % 0 % 06/27/18 11:44 Blast Cells % 0 % 06/27/18 11:44 Nucleated RBC % Not Reportable 06/27/18 11:44 Seg Neutrophils # Man 14.3 K/mm3 (1.8-7.7) H 06/27/18 11:44 Band Neutrophils # 0.0 K/mm3 06/27/18 11:44 Lymphocytes # (Manual) 0.5 K/mm3 (1.2-5.4) L 06/27/18 11:44 Abs React Lymphs (Man) 0.0 K/mm3 06/27/18 11:44 Monocytes # (Manual) 0.2 K/mm3 (0.0-0.8) 06/27/18 11:44 Eosinophils # (Manual) 0.2 K/mm3 (0.0-0.4) 06/27/18 11:44 Basophils # (Manual) 0.0 K/mm3 (0.0-0.1) 06/27/18 11:44 Metamyelocytes # 0.0 K/mm3 06/27/18 11:44 Myelocytes # 0.0 K/mm3 06/27/18 11:44 Promyelocytes # 0.0 K/mm3 06/27/18 11:44 Blast Cells # 0.0 K/mm3 06/27/18 11:44 WBC Morphology Not Reportable 06/27/18 11:44 Hypersegmented Neuts Not Reportable 06/27/18 11:44 Hyposegmented Neuts Not Reportable 06/27/18 11:44 Hypogranular Neuts Not Reportable 06/27/18 11:44 Smudge Cells Not Reportable 06/27/18 11:44 Toxic Granulation Not Reportable 06/27/18 11:44 Toxic Vacuolation Not Reportable 06/27/18 11:44 Dohle Bodies Not Reportable 06/27/18 11:44 Pelger-Huet Anomaly Not Reportable 06/27/18 11:44 Herminia Rods Not Reportable 06/27/18 11:44 Platelet Estimate Consistent w auto 06/27/18 11:44 Clumped Platelets Not Reportable 06/27/18 11:44 Plt Clumps, EDTA Not Reportable 06/27/18 11:44 Large Platelets Not Reportable 06/27/18 11:44 Giant Platelets Not Reportable 06/27/18 11:44 Platelet Satelliting Not Reportable 06/27/18 11:44 Plt Morphology Comment Not Reportable 06/27/18 11:44 RBC Morphology Not Reportable 06/27/18 11:44 Dimorphic RBCs Not Reportable 06/27/18 11:44 Polychromasia Rare 06/27/18 11:44 Hypochromasia Not Reportable 06/27/18 11:44 Poikilocytosis Not Reportable 06/27/18 11:44 Anisocytosis 1+ 06/27/18 11:44 Microcytosis Not Reportable 06/27/18 11:44 Macrocytosis Not Reportable 06/27/18 11:44 Spherocytes Not Reportable 06/27/18 11:44 Pappenheimer Bodies Not Reportable 06/27/18 11:44 Sickle Cells Not Reportable 06/27/18 11:44 Target Cells Not Reportable 06/27/18 11:44 Tear Drop Cells Not Reportable 06/27/18 11:44 Ovalocytes Few 06/27/18 11:44 Helmet Cells Not Reportable 06/27/18 11:44 [place] Bodies Not Reportable 06/27/18 11:44 [place] Rings Not Reportable 06/27/18 11:44 [place] Cells Not Reportable 06/27/18 11:44 Bite Cells Not Reportable 06/27/18 11:44 Crenated Cell Not Reportable 06/27/18 11:44 Elliptocytes Rare 06/27/18 11:44 Acanthocytes (Spur) Not Reportable 06/27/18 11:44 Rouleaux Not Reportable 06/27/18 11:44 Hemoglobin C Crystals Not Reportable 06/27/18 11:44 Schistocytes Not Reportable 06/27/18 11:44 Malaria parasites Not Reportable 06/27/18 11:44 David Bodies Not Reportable 06/27/18 11:44 Hem Pathologist Commnt No 06/27/18 11:44 PT 14.2 Sec. (12.2-14.9) 06/27/18 14:31 INR 1.04 (0.87-1.13) 06/27/18 14:31 APTT 29.8 Sec. (24.2-36.6) 06/27/18 14:31 POC ABG pH 7.398 (7.35-7.45) 06/28/18 13:34 POC ABG pCO2 37.7 (35-45) 06/28/18 13:34 POC ABG pO2 74 (80-105) L 06/28/18 13:34 POC ABG HCO3 23.3 06/28/18 13:34 POC ABG Total CO2 24 06/28/18 13:34 POC ABG O2 Sat 95 06/28/18 13:34 POC ABG Base Excess -2 06/28/18 13:34 FiO2 28 % 06/28/18 13:34 Sodium 144 mmol/L (137-145) 06/29/18 05:02 Potassium 3.6 mmol/L (3.6-5.0) 06/29/18 05:02 Chloride 109.7 mmol/L (98-107) H 06/29/18 05:02 Carbon Dioxide 22 mmol/L (22-30) 06/29/18 05:02 Anion Gap 16 mmol/L 06/29/18 05:02 BUN 10 mg/dL (7-17) 06/29/18 05:02 Creatinine 0.8 mg/dL (0.7-1.2) 06/29/18 05:02 Estimated GFR > 60 ml/min 06/29/18 05:02 BUN/Creatinine Ratio 13 % 06/29/18 05:02 Glucose 85 mg/dL (65-100) 06/29/18 05:02 POC Glucose 126 (70-105) H 06/27/18 11:00 Lactic Acid 1.70 mmol/L (0.7-2.0) 06/27/18 14:31 Calcium 8.6 mg/dL (8.4-10.2) 06/29/18 05:02 Total Bilirubin 0.50 mg/dL (0.1-1.2) 06/27/18 11:44 AST 68 units/L (5-40) H 06/27/18 11:44 ALT 32 units/L (7-56) 06/27/18 11:44 Alkaline Phosphatase 268 units/L (35-129) H 06/27/18 11:44 Total Protein 8.3 g/dL (6.3-8.2) H 06/27/18 11:44 Albumin 3.5 g/dL (3.9-5) L 06/27/18 11:44 Albumin/Globulin Ratio 0.7 % 06/27/18 11:44 Triglycerides 91 mg/dL (2-149) 06/28/18 17:27 Cholesterol 116 mg/dL (50-199) 06/28/18 17:27 LDL Cholesterol Direct 74 mg/dL (50-130) 06/28/18 17:27 HDL Cholesterol 33 mg/dL (40-59) L 06/28/18 17:27 Cholesterol/HDL Ratio 3.51 % 06/28/18 17:27 TSH 1.220 mlU/mL (0.270-4.200) 06/27/18 11:44 Urine Color Yellow (Yellow) 06/27/18 11:39 Urine Turbidity Clear (Clear) 06/27/18 11:39 Urine pH 5.0 (5.0-7.0) 06/27/18 11:39 Ur Specific [place] 1.021 (1.003-1.030) 06/27/18 11:39 Urine Protein <15 mg/dl mg/dL (Negative) 06/27/18 11:39 Urine Glucose (UA) Neg mg/dL (Negative) 06/27/18 11:39 Urine Ketones Neg mg/dL (Negative) 06/27/18 11:39 Urine Blood Neg (Negative) 06/27/18 11:39 Urine Nitrite Neg (Negative) 06/27/18 11:39 Urine Bilirubin Neg (Negative) 06/27/18 11:39 Urine Urobilinogen 2.0 mg/dL (<2.0) 06/27/18 11:39 Ur Leukocyte Esterase Neg (Negative) 06/27/18 11:39 Urine WBC (Auto) < 1.0 /HPF (0.0-6.0) 06/27/18 11:39 Urine RBC (Auto) 3.0 /HPF (0.0-6.0) 06/27/18 11:39 U Epithel Cells (Auto) < 1.0 /HPF (0-13.0) 06/27/18 11:39 Urine Mucus Few /HPF 06/27/18 11:39 Urine Opiates Screen Presumptive negative 06/27/18 11:39 Urine Methadone Screen Presumptive negative 06/27/18 11:39 Ur Barbiturates Screen Presumptive negative 06/27/18 11:39 Ur Phencyclidine Scrn Presumptive negative 06/27/18 11:39 Ur Amphetamines Screen Presumptive negative 06/27/18 11:39 U Benzodiazepines Scrn Presumptive negative 06/27/18 11:39 Urine Cocaine Screen Presumptive negative 06/27/18 11:39 U Marijuana (THC) Screen Presumptive negative 06/27/18 11:39 Drugs of Abuse Note Disclamer 06/27/18 11:39 Plasma/Serum Alcohol < 0.01 % (0-0.07) 06/27/18 11:44
--- NOTE | 2018-06-29 15:19 | Consultation ---
History of Present Illness - Reason for Consult Consult date: 06/29/18 fever/ams Requesting physician: MARILOU WATKINS - History of Present Illness 67 y/o female with history of morbid Obesity, tobacco abuse, hypoventilation, CKD, Depression, CVA, DM, HTN, Sarcoidosis; admitted on 06/27/2018 due to 2-day history of AMS/lethargy and diarrhea multiple times a day. Patient reports he noted diarrhea w/o blood several times 2 days ago and then she does not remember what happened. She also reported nausea and vomiting. Denies any sick contacts. Of note, patient had right total knee replacement on 04/18/2018. Patient has been c/o right knee swelling and pain since surgery but worsening last week. Patient states the pain is a 8 out of 10. Patient came tot he ED due to right leg swelling and US done showed no DVT. Also she was admitted on 05/21/2018 for 2 days due to Sepsis secondary to UTI discharged on oral antibiotics. She was c/o diarrhea felt to be probably viral, stool culture was negative. Also noted TWAN which improved. In the ED, temp 101.1, HR 104, R 17, BP 116/70 went down to 98/52. WBC 15.1. Hg 12.3. plat 174. Creat 1. Lactate 1.7. AST 68. Alkphos 268. Blood culture 06/27/2018 no growth today. Urine culture 06/27/2018 no growth today. CXR neg. CT head neg. Patient found encephalopathy admitted to telemetry. LP and brain MRO attempted unable to perform due to body habitus. Review of Systems: General: + fever, chills, nightsweats, unintentional weight change, or change in appetite Cutaneous: no rash, pruritus Head: no headaches or injury Eyes: no changes in vision, eye pain, double vision Ears: no ear pain, ear discharge, ringing or hearing loss Nose: no nose bleeding, stuffiness Mouth & throat: no bleeding gums, no horseness, no dental problems, or swollen glands Neck: no pain, node enlargement/lumps, tyroid enlargement or tenderness Respiratory: no cough, wheezing, sputum, hemoptysis, pleuritic chest pain Cardiovascular: no chest pain, leg edema, cyanosis, REYES, orthopnea Musculoskeletal: no decreased joint motion, bone or joint pain, joint swelling, muscle aches Gastrointestinal: + nausea, + vomiting, hematemesis, +diarrhea, constipation, melena, bright red blood in stools, fecal incontinence, jaundice Genitourinary/Reproductive: no frequent urination, dysuria, hematuria, incontinence Neurogical: no seizures, no headaches, no weakness, no paresthesias, no loss of speech or vision; no memory loss, no vertigo, no tremors, no numbness Psychiatric: stable mood; no excessive anxiety, sadness or moodiness Past History Past Medical History: diabetes, hypertension, renal failure, stroke, other (Sarcoid, Asthma) Past Surgical History: No surgical history (reviewed) Social history: single. denies: smoking, alcohol abuse, prescription drug abuse Family history: diabetes, hypertension Medications and Allergies Allergies Allergy/AdvReac Type Severity Reaction Status Date / Time ciprofloxacin [From Cipro] Allergy Unknown Verified 04/24/18 21:07 lisinopril Allergy Unknown Verified 04/24/18 21:07 Lodine Allergy Unknown Uncoded 04/24/18 21:07 Home Medications Medication Instructions Recorded Confirmed Last Taken Type Dexlansoprazole (Nf) [Dexilant 60 mg PO DAILY 05/22/18 06/27/18 Unknown History (Nf)] Citalopram [celeXA] 20 mg PO QDAY 06/01/18 06/27/18 Unknown History Clopidogrel [Plavix] 75 mg PO QDAY 06/01/18 06/27/18 Unknown History Fluticasone/Vilanterol [Breo 1 each IH DAILY 06/01/18 06/27/18 Unknown History Ellipta 100-25 Mcg INH] Folic Acid [Folvite] 1 mg PO QDAY 06/01/18 06/27/18 Unknown History Furosemide [Lasix] 80 mg PO DAILY 06/01/18 06/27/18 Unknown History Ipratropium (Nf) [Atrovent] 2 puff IH Q6HR 06/01/18 06/27/18 Unknown History Levothyroxine [Synthroid] 75 mcg PO QAM 06/01/18 06/27/18 Unknown History Linaclotide (Nf) [Linzess (Nf)] 290 mcg PO QDAY 06/01/18 06/27/18 Unknown History Losartan [Cozaar] 100 mg PO QDAY 06/01/18 06/27/18 Unknown History Metoprolol Tartrate 25 mg PO DAILY 06/01/18 06/27/18 Unknown History Potassium Chloride [Klor-Con] 20 meq PO BID 06/01/18 06/27/18 Unknown History Pregabalin [Lyrica] 150 mg PO BID 06/01/18 06/27/18 Unknown History glipiZIDE [glipiZIDE ER] 5 mg PO QAM 06/01/18 06/27/18 Unknown History hydrOXYzine HCl [Hydroxyzine HCl] 25 mg PO BID 06/01/18 06/27/18 Unknown History Oxycodone HCl [Roxicodone TAB] 15 mg PO Q6H PRN 06/28/18 06/28/18 Unknown History Active Meds: Active Medications Acetaminophen (Tylenol) 650 mg PO Q4H PRN PRN Reason: Pain, Mild (1-3) Arformoterol Tartrate (Brovana Nebu) 15 mcg IH Q12HRT [facility] Last Admin: 06/29/18 09:43 Dose: 15 mcg Documented by: Aspirin (Aspirin) 325 mg PO QDAY [facility] Last Admin: 06/29/18 09:56 Dose: 325 mg Documented by: Atorvastatin Calcium (Lipitor) 40 mg PO QHS [facility] Last Admin: 06/28/18 22:22 Dose: 40 mg Documented by: Bisacodyl (Dulcolax) 10 mg SD QDAY PRN PRN Reason: Constipation Budesonide (Pulmicort) 0.5 mg IH Q12HRT [facility] Last Admin: 06/29/18 09:43 Dose: 0.5 mg Documented by: Citalopram Hydrobromide (Celexa) 20 mg PO QDAY [facility] Last Admin: 06/29/18 09:56 Dose: 20 mg Documented by: Clopidogrel Bisulfate (Plavix) 75 mg PO QDAY [facility] Last Admin: 06/29/18 09:55 Dose: 75 mg Documented by: Folic Acid (Folvite) 1 mg PO QDAY [facility] Last Admin: 06/29/18 09:55 Dose: 1 mg Documented by: Furosemide (Lasix) 80 mg PO DAILY [facility] Last Admin: 06/29/18 09:56 Dose: 80 mg Documented by: Hydroxyzine HCl (Atarax) 25 mg PO BID [facility] Last Admin: 06/29/18 10:15 Dose: 25 mg Documented by: Ceftriaxone Sodium (Rocephin/Ns 2 Gm/100 Ml) 2 gm in 100 mls @ 200 mls/hr IV Q12HR [facility]; Protocol Last Admin: 06/29/18 12:33 Dose: 200 mls/hr Documented by: Ipratropium [place] (Atrovent) 0.5 mg IH Q6HRT [facility] Last Admin: 06/29/18 15:00 Dose: 0.5 mg Documented by: Levothyroxine Sodium (Synthroid) 75 mcg PO QAM@0600 [facility] Last Admin: 06/29/18 05:01 Dose: 75 mcg Documented by: Losartan Potassium (Cozaar) 100 mg PO QDAY [facility] Last Admin: 06/29/18 09:13 Dose: Not Given Documented by: Magnesium Hydroxide (Milk Of Magnesia) 30 ml PO Q4H PRN PRN Reason: Constipation Metoclopramide HCl (Reglan) 10 mg PO Q6H PRN PRN Reason: Nausea And Vomiting Metoprolol Tartrate (Lopressor) 25 mg PO DAILY@0800 [facility] Last Admin: 06/29/18 09:13 Dose: Not Given Documented by: Miscellaneous Medication (Linaclotide (Nf)) 290 mcg PO QDAY [facility] Ondansetron HCl (Zofran) 4 mg IV Q8H PRN PRN Reason: Nausea And Vomiting Oxycodone HCl (Roxicodone) 15 mg PO Q6H PRN PRN Reason: Pain, Moderate (4-6) Last Admin: 06/29/18 14:39 Dose: 15 mg Documented by: Pantoprazole Sodium (Protonix) 40 mg PO DAILY [facility] Last Admin: 06/29/18 09:55 Dose: 40 mg Documented by: Potassium Chloride (Potassium Chloride) 20 meq PO BID [facility] Last Admin: 06/29/18 09:55 Dose: 20 meq Documented by: Pregabalin (Lyrica) 150 mg PO BID [facility] Last Admin: 06/29/18 09:56 Dose: 150 mg Documented by: Promethazine HCl (Phenergan) 25 mg SD Q6H PRN PRN Reason: Nausea And Vomiting Sodium Chloride (Sodium Chloride Flush Syringe 10 Ml) 10 ml IV PRN PRN PRN Reason: LINE FLUSH Review of Systems ROS unobtainable: due to endotracheal tube Physical Examination - Physical Exam Narrative exam: General appearance: Alert in NAD, conversant, anxious Eyes: anicteric sclerae, moist conjunctivae; no lid-lag; PERRLA HENT: Atraumatic; oropharynx clear with moist mucous membranes and no mucosal ulcerations/no oral thrush; normal hard and soft palate. Normal external ears. Neck: Trachea midline; supple, no thyromegaly or lymphadenopathy Lungs: CTA, with normal respiratory effort and no intercostal retractions CV: RRR, no murmurs Abdomen: Soft, large pannus, non tender Extremities: tea leg edema, +left knee with surgical scar + TTP and mild edema Skin: Normal temperature, turgor and texture; no rash, ulcers or subcutaneous nodules Psych: Appropriate affect, anxious Neuro: alert and oriented x 3. Moving all extermities - Constitutional Vitals: Vital Signs Temp Pulse Resp BP Pulse Ox 99.4 F 63 18 131/62 98 06/29/18 11:28 06/29/18 15:05 06/29/18 15:05 06/29/18 11:28 06/29/18 11:28 Temperature -Last 24 Hours Temperature 99.4 F Temperature 98.8 F Temperature 98.0 F Temperature 98.0 F Temperature 98.6 F Temperature 98.6 F Temperature 98.5 F Results - Labs CBC & Chem 7: 06/29/18 05:02 06/29/18 05:02 Labs: Abnormal lab results 06/28/18 06/29/18 06/29/18 Range/Units 17:27 05:02 05:02 MCH 27 L (28-32) pg RDW 16.7 H (13.2-15.2) % Chloride 109.7 H (98-107) mmol/L HDL Cholesterol 33 L (40-59) mg/dL Assessment and Plan Cultures: Blood culture 06/27/2018 no growth today. Urine culture 06/27/2018 no growth today. Assessment: 67 y/o female with history of morbid Obesity, tobacco abuse, hypoventilation, CKD, Depression, CVA, DM, HTN, Sarcoidosis, recent UTI treated with abx and right total knee replacement on 04/18/2018; admitted on 06/27/2018 due to 2-day history of AMS/lethargy and diarrhea multiple times a day: 1) Sepsis: Present on admission, manifested by fever, tachycardia, hypotension, leukocytosis. Etiology unclear likely Clostridioides difficlie +/- right TKR infection +/- less likely meningitis - Blood culture 06/27/2018 no growth today. - UA neg - Urine culture 06/27/2018 no growth today. 2) Acute diarrhea: should r/o C diff colitis; diarrhea started since recent admission on/off. she was admitted on 05/21/2018 for 2 days due to Sepsis secondary to UTI discharged on oral antibiotics. She was c/o diarrhea felt to be probably viral, stool culture was negative, diarrhea w/o blood worsening several times for last 2 days 3) History of right total knee replacement on 04/18/2018. Patient has been c/o right knee swelling and pain since surgery but worsening last week. Patient states the pain is a 8 out of 10. Patient came tot he ED due to right leg swelling and US done showed no DVT. Should r/o TKR infection. 4) Acute encephalopathy: doubt meningitis as clinically is better. LP attempted unable to perform. CT head neg. Recommendations: - follow-up blood cultures, urine culture - obtain C-reactive protein (CRP) - XR right knee - Orhto consult to eval Right knee as the cause of sepsis, may need aspiration - C diff stool STAT - continue ceftriaxone and add vancomycin IV to cover presumed right TKR infection - add vancomycin PO to cover C diff empirically Will follow. Brianna Croft MD Infectious Diseases Laboratory Equipment Cleaner [facility] M [phone] O [phone]
[2018-06-29] MEDS ORDERED: .VANCOMYCIN VIAL 1,000 MG in NACL 0.9% 100 ML IV SCH (16:00)
[2018-06-29] MEDS: VANCOMYCIN PO PO SCH (21:16)
[2018-06-29] MEDS: VANCOMYCIN 1,750 MG in NACL 0.9% 500 ML 500 ML IV SCH (22:19)
--- NOTE | 2018-06-29 22:58 | XRay Report ---
PROCEDURE: XR KNEE 3V RT TECHNIQUE: 3 views obtained of the right knee HISTORY: right knee pain, post knee replacement COMPARISONS: No priors FINDINGS: Femoral and tibial components of knee prosthesis in anatomic orientation. No evidence of acute fracture or dislocation. Atherosclerotic calcifications are noted. There is a moderate suprapatellar effusion. Nonspecific lucency along the medial tibial condyle. Infection cannot be excluded. Clinical correlation. IMPRESSION: Femoral and tibial components of the prosthesis in anatomic orientation. Moderate suprapatellar effusion. Nonspecific lucency along the medial tibial condyle which may be postsurgical. Infection cannot be ex cluded. Clinical correlation.. This document is electronically signed by Masoud Hill MD., June 29 2018 10:56:40 PM ET
[2018-06-30] MEDS: ATROVENT IH SCH ×4 (01:00→20:53)
[2018-06-30] MEDS: ROXICODONE PO PRN ×2 (04:47→20:27)
[2018-06-30] MEDS: SYNTHROID PO SCH (05:07)
[2018-06-30] MEDS: VANCOMYCIN PO PO SCH (05:07)
[2018-06-30 06:06] LABS: Hematocrit 30.8 % (30.3-42.9); Hemoglobin 10.2 gm/dl (10.1-14.3); Mean Corpuscular HGB Conc 33 % (30-34); Mean Corpuscular Volume 83 fl (79-97); Platelet Count 132 K/mm3 (140-440); Red Blood Count 3.73 M/mm3 (3.65-5.03); Red Cell Distribution Width 16.7 % (13.2-15.2)
[2018-06-30 06:30] LABS: BUN/Creatinine Ratio 9; Blood Urea Nitrogen 8 mg/dL (7-17); Calcium 8.5 mg/dL (8.4-10.2); Hemolysis Index 7
[2018-06-30] MEDS: BROVANA NEBU IH SCH ×2 (07:33→20:52)
[2018-06-30] MEDS: PULMICORT IH SCH ×2 (07:34→20:52)
[2018-06-30] MEDS: LOPRESSOR PO SCH (08:32)
[2018-06-30] MEDS: COZAAR PO SCH (10:05)
[2018-06-30] MEDS: POTASSIUM CHLORIDE PO SCH ×2 (10:05→21:28)
[2018-06-30] MEDS: PLAVIX PO SCH (10:05)
[2018-06-30] MEDS: ATARAX PO SCH ×2 (10:06→21:37)
[2018-06-30] MEDS: PROTONIX PO SCH (10:06)
[2018-06-30] MEDS: ASPIRIN PO SCH (10:06)
[2018-06-30] MEDS: FOLVITE PO SCH (10:07)
[2018-06-30] MEDS: celeXA PO SCH (10:07)
--- NOTE | 2018-06-30 10:08 | Progress Note ---
Assessment and Plan Cultures: Blood culture 06/27/2018 no growth today. Urine culture 06/27/2018 no growth today. Assessment: 67 y/o female with history of morbid Obesity, tobacco abuse, hypoventilation, CKD, Depression, CVA, DM, HTN, Sarcoidosis, recent UTI treated with abx and right total knee replacement on 04/18/2018; admitted on 06/27/2018 due to 2-day history of AMS/lethargy and diarrhea multiple times a day: 1) Sepsis: Resolved. manifested by fever, tachycardia, hypotension, leukocytosis. Etiology unclear likely Clostridioides difficlie +/- right TKR infection +/- less likely meningitis - Blood culture 06/27/2018 no growth today. - UA neg - Urine culture 06/27/2018 no growth today. -CRP: 3.2 2) Acute diarrhea: should r/o C diff colitis; diarrhea started since recent admission on/off. she was admitted on 05/21/2018 for 2 days due to Sepsis secondary to UTI discharged on oral antibiotics. She was c/o diarrhea felt to be probably viral, stool culture was negative, diarrhea w/o blood worsening several times for last 2 days 3) History of right total knee replacement on 04/18/2018. Patient has been c/o right knee swelling and pain since surgery but worsening last week. Patient states the pain is a 8 out of 10. Patient came tot he ED due to right leg swelling and US done showed no DVT. Patient refusing right knee aspiration at this time .Xray right knee: Moderate suprapatellar effusion. Nonspecific lucency along the medial tibial condyle which may be postsurgical. Infection cannot be excluded. 4) Acute encephalopathy: doubt meningitis as clinically is better. LP attempted unable to perform. CT head neg. Recommendations: - follow-up blood cultures, urine culture - continue ceftriaxone - discontinue vancomycin for now Dr. Macedo will be environmental technical officer this weekend, , please call for questions. [facility] M: [phone] O:[phone] Subjective Date of service: 06/30/18 Interval history: Patient seen and examined, continues to complain about right knee pain, 5/10 on numberic pain scale. Nurses notes, labs and reports reviewed, discussed with patient. Objective - Exam Narrative Exam: General appearance: Alert in NAD, conversant, acute distress, +right knee pain Eyes: anicteric sclerae, moist conjunctivae; no lid-lag; PERRLA HENT: Atraumatic; oropharynx clear with moist mucous membranes and no mucosal ulcerations/no oral thrush; normal hard and soft palate. Normal external ears. Neck: Trachea midline; supple, no thyromegaly or lymphadenopathy Lungs: CTA, with normal respiratory effort and no intercostal retractions CV: RRR, no murmurs Abdomen: Soft, large pannus, non tender Extremities: tea leg edema, +left knee with surgical scar + TTP and mild edema Skin: Normal temperature, turgor and texture; no rash, ulcers or subcutaneous nodules Psych: Appropriate affect, anxious Neuro: alert and oriented x 3. Moving all extermities - Constitutional Vitals: Vital Signs Temp Pulse Resp BP Pulse Ox 98.7 F 57 L 20 124/54 99 06/30/18 04:58 06/30/18 08:32 06/30/18 08:00 06/30/18 04:58 06/30/18 09:51 Temperature -Last 24 Hours Temperature 98.7 F Temperature 98.0 F Temperature 98.0 F Temperature 99.6 F Temperature 99.4 F - Labs CBC & Chem 7: 06/30/18 05:47 06/30/18 05:47 Labs: Abnormal lab results 06/29/18 06/30/18 06/30/18 Range/Units 16:57 05:47 05:47 MCH 27 L (28-32) pg RDW 16.7 H (13.2-15.2) % Plt Count 132 L (140-440) K/mm3 Potassium 3.5 L (3.6-5.0) mmol/L C-Reactive Protein 3.20 H (0.00-1.30) mg/dL
[2018-06-30] MEDS: LYRICA PO SCH ×2 (10:10→21:29)
[2018-06-30] MEDS: VANCOMYCIN 1,750 MG in NACL 0.9% 500 ML 500 ML IV SCH (10:23)
[2018-06-30] MEDS: ROCEPHIN/NS 2 GM/100 ML 2 GM/100 ML BAG IV SCH ×2 (10:24→21:29)
[2018-06-30] MEDS: LASIX PO SCH (10:29)
--- NOTE | 2018-06-30 15:01 | Event Note ---
Date: 06/30/18 Physician Attestation: I have seen and examined patient. I personally discussed and directed assessment and management with ALIGNMENT MECHANIC Becky. Brianna Croft MD Infectious Diseases [employer] [facility] M [phone] O [phone]
--- NOTE | 2018-06-30 15:18 | Consultation ---
History of Present Illness - [facility] Consult date: 06/30/18 Consult reason: joint pain History of present illness: 67 y/o female with c/o mild knee pain, states became worse after lying face-down on radiology table yesterday...admitted for diarrhea and increased temp...hx of right TKR x 2 last one 2017... denies severe pain or limitation of motion at right knee Past History Past Medical History: diabetes, hypertension, renal failure, stroke, other (Sarcoid, Asthma) Past Surgical History: No surgical history (reviewed) Social history: single. denies: smoking, alcohol abuse, prescription drug abuse Family history: diabetes, hypertension Medications and Allergies Allergies Allergy/AdvReac Type Severity Reaction Status Date / Time ciprofloxacin [From Cipro] Allergy Unknown Verified 04/24/18 21:07 lisinopril Allergy Unknown Verified 04/24/18 21:07 Lodine Allergy Unknown Uncoded 04/24/18 21:07 Home Medications Medication Instructions Recorded Confirmed Last Taken Type Dexlansoprazole (Nf) [Dexilant 60 mg PO DAILY 05/22/18 06/27/18 Unknown History (Nf)] Citalopram [celeXA] 20 mg PO QDAY 06/01/18 06/27/18 Unknown History Clopidogrel [Plavix] 75 mg PO QDAY 06/01/18 06/27/18 Unknown History Fluticasone/Vilanterol [Breo 1 each IH DAILY 06/01/18 06/27/18 Unknown History Ellipta 100-25 Mcg INH] Folic Acid [Folvite] 1 mg PO QDAY 06/01/18 06/27/18 Unknown History Furosemide [Lasix] 80 mg PO DAILY 06/01/18 06/27/18 Unknown History Ipratropium (Nf) [Atrovent] 2 puff IH Q6HR 06/01/18 06/27/18 Unknown History Levothyroxine [Synthroid] 75 mcg PO QAM 06/01/18 06/27/18 Unknown History Linaclotide (Nf) [Linzess (Nf)] 290 mcg PO QDAY 06/01/18 06/27/18 Unknown History Losartan [Cozaar] 100 mg PO QDAY 06/01/18 06/27/18 Unknown History Metoprolol Tartrate 25 mg PO DAILY 06/01/18 06/27/18 Unknown History Potassium Chloride [Klor-Con] 20 meq PO BID 06/01/18 06/27/18 Unknown History Pregabalin [Lyrica] 150 mg PO BID 06/01/18 06/27/18 Unknown History glipiZIDE [glipiZIDE ER] 5 mg PO QAM 06/01/18 06/27/18 Unknown History hydrOXYzine HCl [Hydroxyzine HCl] 25 mg PO BID 06/01/18 06/27/18 Unknown History Oxycodone HCl [Roxicodone TAB] 15 mg PO Q6H PRN 06/28/18 06/28/18 Unknown History Active Meds: Active Medications Acetaminophen (Tylenol) 650 mg PO Q4H PRN PRN Reason: Pain, Mild (1-3) Arformoterol Tartrate (Brovana Nebu) 15 mcg IH Q12HRT [facility] Last Admin: 06/30/18 07:33 Dose: 15 mcg Documented by: Aspirin (Aspirin) 325 mg PO QDAY [facility] Last Admin: 06/30/18 10:06 Dose: 325 mg Documented by: Atorvastatin Calcium (Lipitor) 40 mg PO QHS [facility] Last Admin: 06/29/18 21:15 Dose: 40 mg Documented by: Bisacodyl (Dulcolax) 10 mg [place] QDAY PRN PRN Reason: Constipation Budesonide (Pulmicort) 0.5 mg IH Q12HRT [facility] Last Admin: 06/30/18 07:34 Dose: 0.5 mg Documented by: Citalopram Hydrobromide (Celexa) 20 mg PO QDAY [facility] Last Admin: 06/30/18 10:07 Dose: 20 mg Documented by: Clopidogrel Bisulfate (Plavix) 75 mg PO QDAY [facility] Last Admin: 06/30/18 10:05 Dose: 75 mg Documented by: Folic Acid (Folvite) 1 mg PO QDAY [facility] Last Admin: 06/30/18 10:07 Dose: 1 mg Documented by: Furosemide (Lasix) 80 mg PO DAILY [facility] Last Admin: 06/30/18 10:29 Dose: 80 mg Documented by: Hydroxyzine HCl (Atarax) 25 mg PO BID [facility] Last Admin: 06/30/18 10:06 Dose: 25 mg Documented by: Ceftriaxone Sodium (Rocephin/Ns 2 Gm/100 Ml) 2 gm in 100 mls @ 200 mls/hr IV Q12HR [facility]; Protocol Last Admin: 06/30/18 10:24 Dose: 200 mls/hr Documented by: Vancomycin HCl 1,750 mg/ (Sodium Chloride) 535 mls @ 267.5 mls/hr IV Q12H [facility] Last Admin: 06/30/18 10:23 Dose: 267.5 mls/hr Documented by: Ipratropium [place] (Atrovent) 0.5 mg IH Q6HRT [facility] Last Admin: 06/30/18 13:30 Dose: 0.5 mg Documented by: Levothyroxine Sodium (Synthroid) 75 mcg PO QAM@0600 [facility] Last Admin: 06/30/18 05:07 Dose: 75 mcg Documented by: Losartan Potassium (Cozaar) 100 mg PO QDAY [facility] Last Admin: 06/30/18 10:05 Dose: 100 mg Documented by: Magnesium Hydroxide (Milk Of Magnesia) 30 ml PO Q4H PRN PRN Reason: Constipation Metoclopramide HCl (Reglan) 10 mg PO Q6H PRN PRN Reason: Nausea And Vomiting Metoprolol Tartrate (Lopressor) 25 mg PO DAILY@0800 [facility] Last Admin: 06/30/18 08:32 Dose: Not Given Documented by: Miscellaneous Medication (Linaclotide (Nf)) 290 mcg PO QDAY [facility] Ondansetron HCl (Zofran) 4 mg IV Q8H PRN PRN Reason: Nausea And Vomiting Oxycodone HCl (Roxicodone) 15 mg PO Q6H PRN PRN Reason: Pain, Moderate (4-6) Last Admin: 06/30/18 04:47 Dose: 15 mg Documented by: Pantoprazole Sodium (Protonix) 40 mg PO DAILY [facility] Last Admin: 06/30/18 10:06 Dose: 40 mg Documented by: Potassium Chloride (Potassium Chloride) 20 meq PO BID [facility] Last Admin: 06/30/18 10:05 Dose: 20 meq Documented by: Pregabalin (Lyrica) 150 mg PO BID [facility] Last Admin: 06/30/18 10:10 Dose: 150 mg Documented by: Promethazine HCl (Phenergan) 25 mg [place] Q6H PRN PRN Reason: Nausea And Vomiting Sodium Chloride (Sodium Chloride Flush Syringe 10 Ml) 10 ml IV PRN PRN PRN Reason: LINE FLUSH Vancomycin HCl (Vancomycin Po) 125 mg PO Q6HR [facility] Last Admin: 06/30/18 05:07 Dose: 125 mg Documented by: Physical Examination - Physical exam Narrative exam: afebrile right knee - well healed scar, no erythema,no effusion, good active ROM no obvious instability noted Assessment and Plan Right knee pain most likely from spinal tap done recently little in the way of sepsis at the right as being source, patient refuse aspiration at this time recommend observation
--- NOTE | 2018-06-30 15:42 | Progress Note ---
Assessment and Plan Assessment and plan: Encephalopathy Improving, Now awake, alert,oriented X [address] head unremarkable Could not do MRI because of body habitus Unsuccessful LP attempts Fever of 101 on admission Consulted ID Physician for fever and AMS Continue Rocephin Blood cultures neg UA neg CXR neg leukocytosis now resolved Right knee tender Ortho consulted and he evaluated patient and stated knee infection unlikely Diabetes mellitus type 2 Check fingerstick qac and hs Hypertension Monitor BP Hyperlipidemia Sarcoidosis history of Stroke Depression Full code status History Interval history: Altered mental status, now resolved Could not do MRI because of body habitus Unsuccessful LP attempts Hospitalist Physical - Physical exam Narrative exam: GEN: Not in acute distress, Morbid Obesity HEENT: Normocephalic, atraumatic, Neck: supple, No JVD Lungs: Clear to auscultation bilaterally, Abd:soft, non tender, non distended, normal bowel sounds Ext: Tender right knee, scar right knee, no clubbing or cyanosis Neuro:Awake,alert,oriented x 3, No confusion currently, moves all ext Skin:No rash - Constitutional Vitals: Temp Pulse Resp BP Pulse Ox 98.4 F 60 18 117/52 99 06/30/18 13:13 06/30/18 13:40 06/30/18 13:40 06/30/18 13:13 06/30/18 13:13 General appearance: Present: obese Results - Labs CBC & Chem 7: 06/30/18 05:47 06/30/18 05:47 Labs: Laboratory Last Values WBC 6.2 K/mm3 (4.5-11.0) 06/30/18 05:47 RBC 3.73 M/mm3 (3.65-5.03) 06/30/18 05:47 Hgb 10.2 gm/dl (10.1-14.3) 06/30/18 05:47 Hct 30.8 % (30.3-42.9) 06/30/18 05:47 MCV 83 fl (79-97) 06/30/18 05:47 MCH 27 pg (28-32) L 06/30/18 05:47 MCHC 33 % (30-34) 06/30/18 05:47 RDW 16.7 % (13.2-15.2) H 06/30/18 05:47 Plt Count 132 K/mm3 (140-440) L 06/30/18 05:47 Add Manual Diff Complete 06/27/18 11:44 Total Counted 100 06/27/18 11:44 Seg Neuts % (Manual) 95.0 % (40.0-70.0) H 06/27/18 11:44 Band Neutrophils % 0 % 06/27/18 11:44 Lymphocytes % (Manual) 3.0 % (13.4-35.0) L 06/27/18 11:44 Reactive Lymphs % (Man) 0 % 06/27/18 11:44 Monocytes % (Manual) 1.0 % (0.0-7.3) 06/27/18 11:44 Eosinophils % (Manual) 1.0 % (0.0-4.3) 06/27/18 11:44 Basophils % (Manual) 0 % (0.0-1.8) 06/27/18 11:44 Metamyelocytes % 0 % 06/27/18 11:44 Myelocytes % 0 % 06/27/18 11:44 Promyelocytes % 0 % 06/27/18 11:44 Blast Cells % 0 % 06/27/18 11:44 Nucleated RBC % Not Reportable 06/27/18 11:44 Seg Neutrophils # Man 14.3 K/mm3 (1.8-7.7) H 06/27/18 11:44 Band Neutrophils # 0.0 K/mm3 06/27/18 11:44 Lymphocytes # (Manual) 0.5 K/mm3 (1.2-5.4) L 06/27/18 11:44 Abs React Lymphs (Man) 0.0 K/mm3 06/27/18 11:44 Monocytes # (Manual) 0.2 K/mm3 (0.0-0.8) 06/27/18 11:44 Eosinophils # (Manual) 0.2 K/mm3 (0.0-0.4) 06/27/18 11:44 Basophils # (Manual) 0.0 K/mm3 (0.0-0.1) 06/27/18 11:44 Metamyelocytes # 0.0 K/mm3 06/27/18 11:44 Myelocytes # 0.0 K/mm3 06/27/18 11:44 Promyelocytes # 0.0 K/mm3 06/27/18 11:44 Blast Cells # 0.0 K/mm3 06/27/18 11:44 WBC Morphology Not Reportable 06/27/18 11:44 Hypersegmented Neuts Not Reportable 06/27/18 11:44 Hyposegmented Neuts Not Reportable 06/27/18 11:44 Hypogranular Neuts Not Reportable 06/27/18 11:44 Smudge Cells Not Reportable 06/27/18 11:44 Toxic Granulation Not Reportable 06/27/18 11:44 Toxic Vacuolation Not Reportable 06/27/18 11:44 Dohle Bodies Not Reportable 06/27/18 11:44 Pelger-Huet Anomaly Not Reportable 06/27/18 11:44 Herminia Rods Not Reportable 06/27/18 11:44 Platelet Estimate Consistent w auto 06/27/18 11:44 Clumped Platelets Not Reportable 06/27/18 11:44 Plt Clumps, EDTA Not Reportable 06/27/18 11:44 Large Platelets Not Reportable 06/27/18 11:44 Giant Platelets Not Reportable 06/27/18 11:44 Platelet Satelliting Not Reportable 06/27/18 11:44 Plt Morphology Comment Not Reportable 06/27/18 11:44 RBC Morphology Not Reportable 06/27/18 11:44 Dimorphic RBCs Not Reportable 06/27/18 11:44 Polychromasia Rare 06/27/18 11:44 Hypochromasia Not Reportable 06/27/18 11:44 Poikilocytosis Not Reportable 06/27/18 11:44 Anisocytosis 1+ 06/27/18 11:44 Microcytosis Not Reportable 06/27/18 11:44 Macrocytosis Not Reportable 06/27/18 11:44 Spherocytes Not Reportable 06/27/18 11:44 Pappenheimer Bodies Not Reportable 06/27/18 11:44 Sickle Cells Not Reportable 06/27/18 11:44 Target Cells Not Reportable 06/27/18 11:44 Tear Drop Cells Not Reportable 06/27/18 11:44 Ovalocytes Few 06/27/18 11:44 Helmet Cells Not Reportable 06/27/18 11:44 [place] Bodies Not Reportable 06/27/18 11:44 [place] Rings Not Reportable 06/27/18 11:44 David Cells Not Reportable 06/27/18 11:44 Bite Cells Not Reportable 06/27/18 11:44 Crenated Cell Not Reportable 06/27/18 11:44 Elliptocytes Rare 06/27/18 11:44 Acanthocytes (Spur) Not Reportable 06/27/18 11:44 Rouleaux Not Reportable 06/27/18 11:44 Hemoglobin C Crystals Not Reportable 06/27/18 11:44 Schistocytes Not Reportable 06/27/18 11:44 Malaria parasites Not Reportable 06/27/18 11:44 David Bodies Not Reportable 06/27/18 11:44 Hem Pathologist Commnt No 06/27/18 11:44 PT 14.2 Sec. (12.2-14.9) 06/27/18 14:31 INR 1.04 (0.87-1.13) 06/27/18 14:31 APTT 29.8 Sec. (24.2-36.6) 06/27/18 14:31 POC ABG pH 7.398 (7.35-7.45) 06/28/18 13:34 POC ABG pCO2 37.7 (35-45) 06/28/18 13:34 POC ABG pO2 74 (80-105) L 06/28/18 13:34 POC ABG HCO3 23.3 06/28/18 13:34 POC ABG Total CO2 24 06/28/18 13:34 POC ABG O2 Sat 95 06/28/18 13:34 POC ABG Base Excess -2 06/28/18 13:34 FiO2 28 % 06/28/18 13:34 Sodium 141 mmol/L (137-145) 06/30/18 05:47 Potassium 3.5 mmol/L (3.6-5.0) L 06/30/18 05:47 Chloride 105.0 mmol/L (98-107) 06/30/18 05:47 Carbon Dioxide 24 mmol/L (22-30) 06/30/18 05:47 Anion Gap 16 mmol/L 06/30/18 05:47 BUN 8 mg/dL (7-17) 06/30/18 05:47 Creatinine 0.9 mg/dL (0.7-1.2) 06/30/18 05:47 Estimated GFR > 60 ml/min 06/30/18 05:47 BUN/Creatinine Ratio 9 % 06/30/18 05:47 Glucose 97 mg/dL (65-100) 06/30/18 05:47 POC Glucose 97 (70-105) 06/30/18 11:31 Lactic Acid 1.70 mmol/L (0.7-2.0) 06/27/18 14:31 Calcium 8.5 mg/dL (8.4-10.2) 06/30/18 05:47 Total Bilirubin 0.50 mg/dL (0.1-1.2) 06/27/18 11:44 AST 68 units/L (5-40) H 06/27/18 11:44 ALT 32 units/L (7-56) 06/27/18 11:44 Alkaline Phosphatase 268 units/L (35-129) H 06/27/18 11:44 C-Reactive Protein 3.20 mg/dL (0.00-1.30) H 06/29/18 16:57 Total Protein 8.3 g/dL (6.3-8.2) H 06/27/18 11:44 Albumin 3.5 g/dL (3.9-5) L 06/27/18 11:44 Albumin/Globulin Ratio 0.7 % 06/27/18 11:44 Triglycerides 91 mg/dL (2-149) 06/28/18 17:27 Cholesterol 116 mg/dL (50-199) 06/28/18 17:27 LDL Cholesterol Direct 74 mg/dL (50-130) 06/28/18 17:27 HDL Cholesterol 33 mg/dL (40-59) L 06/28/18 17:27 Cholesterol/HDL Ratio 3.51 % 06/28/18 17:27 TSH 1.220 mlU/mL (0.270-4.200) 06/27/18 11:44 Urine Color Yellow (Yellow) 06/27/18 11:39 Urine Turbidity Clear (Clear) 06/27/18 11:39 Urine pH 5.0 (5.0-7.0) 06/27/18 11:39 Ur Specific [place] 1.021 (1.003-1.030) 06/27/18 11:39 Urine Protein <15 mg/dl mg/dL (Negative) 06/27/18 11:39 Urine Glucose (UA) Neg mg/dL (Negative) 06/27/18 11:39 Urine Ketones Neg mg/dL (Negative) 06/27/18 11:39 Urine Blood Neg (Negative) 06/27/18 11:39 Urine Nitrite Neg (Negative) 06/27/18 11:39 Urine Bilirubin Neg (Negative) 06/27/18 11:39 Urine Urobilinogen 2.0 mg/dL (<2.0) 06/27/18 11:39 Ur Leukocyte Esterase Neg (Negative) 06/27/18 11:39 Urine WBC (Auto) < 1.0 /HPF (0.0-6.0) 06/27/18 11:39 Urine RBC (Auto) 3.0 /HPF (0.0-6.0) 06/27/18 11:39 U Epithel Cells (Auto) < 1.0 /HPF (0-13.0) 06/27/18 11:39 Urine Mucus Few /HPF 06/27/18 11:39 Urine Opiates Screen Presumptive negative 06/27/18 11:39 Urine Methadone Screen Presumptive negative 06/27/18 11:39 Ur Barbiturates Screen Presumptive negative 06/27/18 11:39 Ur Phencyclidine Scrn Presumptive negative 06/27/18 11:39 Ur Amphetamines Screen Presumptive negative 06/27/18 11:39 U Benzodiazepines Scrn Presumptive negative 06/27/18 11:39 Urine Cocaine Screen Presumptive negative 06/27/18 11:39 U Marijuana (THC) Screen Presumptive negative 06/27/18 11:39 Drugs of Abuse Note Disclamer 06/27/18 11:39 Plasma/Serum Alcohol < 0.01 % (0-0.07) 06/27/18 11:44
[2018-07-01] MEDS: ATROVENT IH SCH ×3 (01:54→13:08)
[2018-07-01] MEDS: SYNTHROID PO SCH (05:26)
[2018-07-01] MEDS: PULMICORT IH SCH (07:03)
[2018-07-01] MEDS: BROVANA NEBU IH SCH (07:03)
[2018-07-01] MEDS ORDERED: ROCEPHIN/NS 2 GM/100 ML 2 GM/100 ML BAG IV SCH (10:00)
[2018-07-01] MEDS: POTASSIUM CHLORIDE PO SCH (10:33)
[2018-07-01] MEDS: ASPIRIN PO SCH (10:34)
[2018-07-01] MEDS: PLAVIX PO SCH (10:34)
[2018-07-01] MEDS: ATARAX PO SCH (10:35)
[2018-07-01] MEDS: LYRICA PO SCH (10:36)
[2018-07-01] MEDS: FOLVITE PO SCH (10:37)
[2018-07-01] MEDS: LASIX PO SCH (10:37)
[2018-07-01] MEDS: celeXA PO SCH (10:38)
[2018-07-01] MEDS: PROTONIX PO SCH (10:38)
[2018-07-01] MEDS: COZAAR PO SCH (10:42)
[2018-07-01] MEDS: LOPRESSOR PO SCH (10:50)
--- NOTE | 2018-07-01 13:31 | Discharge Summary ---
Providers - Providers Date of Admission: 06/27/18 14:31 Date of discharge: 07/01/18 Attending physician: MARILOU WATKINS 06/27/18 14:32 Occupational Therapy Evaluate and Treat [CONS] Routine Comment: Reason For Exam: Neuro deficits Physical Therapy Evaluation and Treat [CONS] Routine Comment: Reason For Exam: Neuro deficits 06/27/18 14:34 Speech Therapy Evaluation and Treat [CONS] Routine Reason For Exam: swallow eval 06/27/18 21:02 Consult to Physician [CONS] Routine Comment: Consulting Provider: WILLIAM VARGAS Physician Instructions: Reason For Exam: cva 06/29/18 10:57 Consult to Physician [CONS] Routine Comment: Consulting Provider: MAUREEN SMITH Physician Instructions: Reason For Exam: Fever, altered mental status 06/30/18 14:05 Consult to Physician [CONS] Routine Comment: Consulting Provider: THOMAS JARVIS Physician Instructions: Reason For Exam: right knee effusion Primary care physician: LOWERATOR OPERATOR Hospitalization Condition: Fair Hospital course: Patient is 67 yo Female with morbid obesity, hypoventilation, CKD, Depression, stroke , diabetes, hypertension, sarcoidosis, presented to Emergency Department with altered mental status, confusion. She was seen and evaluated in ED and found to have Encephalopathy, sepsis versus SIRS, as well as suspected CVA. Pt a dmitted to telemetry and initiated on empiric antibiotic therapy as well as CVA protocol. Lumbar puncture ordered but was unsuccessful because of morbid obesity. MRI ordered also could not be done because of morbid obesity. She was evaluated by neurology and ID physician. She improved , her mental status went back to baseline. Sepsis resolved. She felt better with IV antibiotics. She complained of pain right knee where she had knee replacement with moderate suprapatellar effusion on x-ray. She was evaluated by Dr. Jarvis, orthopedic surgeon conservative management recommended. Patient was ultimately discharged on 07/01/2018 to follow as an outpatient. Total time spent on discharge, 34 minutes Disposition: DC-01 TO HOME OR SELFCARE - Discharge Diagnoses (1) Toxic metabolic encephalopathy Status: Acute (2) Sarcoidosis Status: Acute (3) Obesity hypoventilation syndrome Status: Acute (4) Sepsis Status: Acute (5) Hypertension Status: Acute (6) Diabetes mellitus type 2 in obese Status: Acute Core Measure Documentation - Palliative Care Palliative Care/ Comfort Measures: Not Applicable - Core Measures Any of the following diagnoses?: none Exam - Constitutional Vitals: Temp Pulse Resp BP Pulse Ox 98.3 F 51 L 20 118/56 97 07/01/18 08:09 07/01/18 08:09 07/01/18 08:09 07/01/18 08:09 07/01/18 08:09 Plan Activity: advance as tolerated Diet: low fat, low cholesterol, low salt Additional Instructions: 1.Follow up with PCP in 1 week. 2.Follow up with Orthopedic surgeon to evaluate right knee pain Follow up with: PRIMARY CARE, [Primary Care Provider] - 3-5 Days Prescriptions: cefUROXime [Ceftin] 500 mg PO Q12H 5 Days tablet Doxycycline [Vibramycin CAP] 100 mg PO Q12HR 5 Days capsule
[2018-07-01 13:49] VITALS: BP 123/63
== END 2018-07-01 16:25 | disposition home or self-care (01) | DRG 872 ==
LOC: ED 10:01 → 4A 14:31
PROVIDERS: ADMIT Internal Medicine; ATTEND Internal Medicine
PROC: 4A033R1 Measurement of Arterial Saturation, Peripheral, Percutaneous Approach (ICD-10-PCS; principal; 2018-06-27)
PROC: B01B1ZZ Fluoroscopy of Spinal Cord using Low Osmolar Contrast (ICD-10-PCS; 2018-06-29)
PROC: 00JU3ZZ Inspection of Spinal Canal, Percutaneous Approach (ICD-10-PCS; 2018-06-29)
DX: A41.9 Sepsis, unspecified organism (principal); G93.40 Encephalopathy, unspecified; E66.2 Morbid (severe) obesity with alveolar hypoventilation; N18.9 Chronic kidney disease, unspecified; F32.9 Major depressive disorder, single episode, unspecified; I12.9 Hypertensive chronic kidney disease with stage 1 through stage 4 chronic kidney disease, or unspecified chronic kidney disease; E11.22 Type 2 diabetes mellitus with diabetic chronic kidney disease; J45.909 Unspecified asthma, uncomplicated; Z96.651 Presence of right artificial knee joint; E78.5 Hyperlipidemia, unspecified; D86.9 Sarcoidosis, unspecified; Z82.49 Family history of ischemic heart disease and other diseases of the circulatory system; Z83.3 Family history of diabetes mellitus; Z88.5 Allergy status to narcotic agent; Z88.1 Allergy status to other antibiotic agents; Z79.899 Other long term (current) drug therapy; Z86.73 Personal history of transient ischemic attack (TIA), and cerebral infarction without residual deficits
CPT/HCPCS: 36415; 36600; 70450; 71045; 80048; 80053; 80061; 80307; 80320; 81001; 82140; 82803; 82962; 84443; 85007; 85025; 85027; 85610; 85730; 86140; 87040; 87086; 93005; 93010; 93306; 93880; 94640; 94760; G0378; A9270-GY; G0480; J0696; J3370; J7030; J7040